=== PATIENT | female | born 1990 | race Caucasian/White ===

== ENCOUNTER 2022-01-17 08:00 | Outpatient (RCR) | payer OTHER, SELFPAY ==
--- NOTE | 2022-01-17 09:00 | BH.SGPN.GN ---
Behaviors/Verbalizations/Mental Status: []Eye contact is good. Motor activity is appropriate. Appearance is casual. Speech is Appropriate. Mood is depressed and anxious. Affect is congruent. Thoughts are linear and logical. No evidence of psychosis. Reviewed daily check in sheet and indicated a 1/5, with 5 being severe, for suicidal ideation and a 0/5 for suicidal intent. Client completed C-SSRS this morning and indicated she could keep self safe. Client Response/Progress/Benefit: []Client respond well to session as evidenced by listening attentively to others and sharing thoughts and feelings. Client reported she is seeking treatment because she has been struggling with worsening depression and struggling with processing recent ADHD diagnosis. Client stated she has been having lots of worries that she doesn't know who she is anymore after the ADHD diagnosis. Client reported mental health has impacted ability to work and needed to take time off to get help. Client's first day in IOP. Seemed to benefit from support from peers. Client to continue IOP to increase healthy coping, improve daily functioning and prevent decompensation. Narrative Note: []
--- NOTE | 2022-01-17 10:05 | BH.SGPN.GN ---
Behaviors/Verbalizations/Mental Status: []Pt alert and oriented, neatly dressed and groomed. Eye contact good. Motor activity appropriate. Speech within normal limits. Affect constricted, mood anxious. Thoughts linear, logical, no signs of hallucinations or delusions. Client Response/Progress/Benefit: []Pt attentive during psychoeducation and participated in group activity. Participated in interactive group discussion on internal and external barriers to mental health progress. Group identified examples of internal barriers as; negative thoughts, anxiety, cognitive distortions, and past experiences. Pt kayla a picture of their current reality which pt described as I have an inner self with negative thinking and not letting people see what's really going on, and an outer self that others see that looks happy. Pt also kayla their desired reality which pt described as having some cracks in my inner self, but letting others in and not letting others' comments determine my worth. Benefited from increased awareness of current barriers to progress as well as current/desired realities. First day of IOP tx. Pt will continue IOP tx to prevent decompensation, gain healthy coping skills, and improve daily functioning. Narrative Note: []
--- NOTE | 2022-01-17 11:10 | BH.SGPN.GN ---
Behaviors/Verbalizations/Mental Status: [] Eye contact is good. Motor activity is appropriate. Appearance is casual. Speech is Appropriate. Mood is anxious. Affect is congruent. Thoughts are linear and logical. No evidence of psychosis. Client Response/Progress/Benefit: [] Pt was an active participant in group discussions. Attentive during psychoeducation. Engaged in experiential group activity. Able to identify barriers to desired reality which include: self-doubt, give up easily, and unrealistic expectations. Participated as group brainstormed ideas on how to cope with internal barriers that can keep individuals stuck. Benefited from group by identifying obstacles and solutions to desired reality.? Will continue in IOP to stabilize anxiety, prevent decompensation, and improve functioning to return to work. Narrative Note: []
--- NOTE | 2022-01-18 10:15 | BH.SGPN.GN ---
Behaviors/Verbalizations/Mental Status: [] Client alert and oriented, casually dressed and groomed. Eye contact good. Motor activity appropriate. Speech within normal limits. Affect congruent, mood euthymic. Thoughts linear, logical, no signs of hallucinations or delusions. Client Response/Progress/Benefit: [] Client responded well to session AEB sharing throughout group and listening attentively to others. Client provided examples of what weakens our safety net of supports being over involved and not putting boundaries on them. Group provided examples of benefits of having social support, including: validation, increased confidence, and better mental health. Client participated in experiential activity illustrating the importance of having multiple social supports. Client provided supportive feedback and problem solving throughout group activity. Client participated in group processing of the activity, stating having more social support makes ?things easier?. Client appeared to benefit from increased knowledge of the benefits of social support and greater self-awareness. Client will continue IOP treatment to continue increasing application of healthy coping skills and decrease isolation. Narrative Note: []
--- NOTE | 2022-01-18 11:15 | BH.SGPN.GN ---
Behaviors/Verbalizations/Mental Status: [] Client alert and oriented, casually dressed and groomed. Eye contact good. Motor activity appropriate. Speech within normal limits. Affect congruent, mood euthymic. Thoughts linear, logical, no signs of hallucinations or delusions. Client Response/Progress/Benefit: [] Client was an active participant throughout AEB contributing to discussion, providing personal examples, and taking notes. Client processed emotions felt in the activity and how they coped in the moment. Client provided input during discussion on the types of support our supports can provide. Client able to identify current support system and barriers that get in the way of using supports by drawing out their own support net. Client reported after identifying what type of supports she receives, she gained awareness that she could benefit from more social supports. Client identified steps to achieve this by accepting invitations, make more friends, and get out more. Client shared increasing social supports will help her get out of her head more. Client seemed to benefit from identifying the type of support client needs to work on improving. Client recommended to continue IOP tx to prevent decompensation, reduce isolation, and increase overall functioning. Narrative Note: []
--- NOTE | 2022-01-18 11:29 | BH.MDN ---
Multi-Disciplinary Note - Note 30-min Individual Time Started:: 09:35 Date: 01/18/22 Purpose of session/treatment goals addressed:: To gather information on pt's current stressors, symptoms, triggers, and tx goals. Another goal was to build rapport and provide emotional support. Eye Contact:: Fair Motor Activity:: Restless Speech:: Rambling, Rapid Mood:: Anxious, Dysthymic Affect:: Congruent, Other - tearful throughout session Thoughts:: Racing, Other - jumping from topic to topic. Staff Interventions:: rapport building, strengths perspective, treatment planning, goal setting Client Response:: Pt responded well to session, open to meeting with therapist. Pt shared a little about her history with mental health treatment. Pt is currently seeing Dr. Singh for medication management at [place] [id number] and Kamilah for counseling at [place] [address]. Pt shared she has been in and out of counseling for years and has found it helpful in the past. Pt has a history of alcohol use disorder, OCD, and was recently diagnosed with ADHD. Pt shared being diagnosed helped give pt some insight, but it also triggered anxiety about her identify and led to over-researching. Pt was tearful and shared the biggest thing she wants to work on is managing her expectations for herself. Pt stated she has had high expectations since she was a child, and pt shared some of these were placed on pt by her family. Pt acknowledges that her depressive symptoms derive from her unrealistic expectations of herself and anxiety. Pt also wants to work on finding her self-confidence, being able to set boundaries with herself, and improve her functioning. Risks/Concerns:: Pt admits to having thoughts of wishing she did not exist, but pt denies any active SI, plan, or intent. Pt denies any HI. Progress Toward Goals/Plan:: Pt's second day of IOP tx and reports enjoying group so far. Pt endorses severe anxiety, depressive symptoms, racing thoughts, and wishes of . Pt was tearful throughout session and sharing how she feels like I haven't met any expectations for my life so far. Pt reports she was diagnosed with ADHD in August which has been both helpful and more stressful to learn. Pt is established with outpatient counseling and psychiatry. Pt will continue IOP tx to prevent decompensation, improve daily functioning, and improve self-confidence. Time Stopped:: 10:05
--- NOTE | 2022-01-18 11:35 | BH.PSA_ITS ---
Source of Information - Presenting Problems/Circumstances Problems, Referral Source, Mental Status, Client: Pt is a 31 year-old female with a history of MDD, ADHD, OCD, and alcohol use disorder in remission. Pt has no previous psych admissions and was referred to [facility] by her outpatient psychiatrist due to decompensation impacting functioning. At admission, pt endorsed hopelessness, worthlessness, isolative behaviors, anhedonia, loss of appetite, low energy, and lack of motivation. Pt also had survival ambivalence, but denied any SI. Pt reported crying spells throughout the day and not knowing who she is due to recent ADHD diagnosis. Pt's functioning is severely impacted by symptoms, pt is off work because of mental health and struggling to complete ADLs. Pt's symptoms are also impacting her social and familial functioning. Psychiatric Presentation - Psych Issues & Need for Admission Psychiatric Issues:: Major depressive disorder, recurrent, moderate F 33.1; Obsessive-compulsive disorder; Generalized anxiety disorder; ADHD; Alcohol use disorder in remission since July 2021 Past Psychiatric History - Treatment Hx Treatment History: No psychiatric admissions ever. No suicide attempts. She first took psych medications at age 12. She first had counseling at age 8 for being bullied and it was somewhat helpful. She had exposure therapy in the past for OCD which was quite helpful. She has a psychiatrist and therapist at [place] [id number]. She has tried in the past Adderall, Paxil, Zoloft and Wellbutrin. First hospitalization:: n/a Most recent hospitalization:: n/a Medication Trials:: Yes ECT Therapy:: No Age of first mental health symptoms: See treatment history Describe (age, circumstance, etc) any past hospitalizations: Pt denies any hospitalizations for mental health reasons, but pt was admitted for her alcohol use in the past. Pt has been to rehab for alcohol twice in 2015 and one was inpatient and one was short-term for less than a week. Current providers for mental health treatment (counselor, psychiatrist, upper caser, etc.): Pt sees Dr. Singh for psychiatry and Kamilah Cm for counseling at [place] [address]. Development & Family of Origin - Childhood Significant Childhood Events: She was quite as a child and her school life was a struggle as she had difficulty making friends. Pt also reports due to her mother's unmanaged anxiety, there was tension at times at home. - Family Who currently lives in your home?: Pt currently lives with her parents due to her mental health and financial reasons. Describe family composition:: Pt was born and raised in [place]. Pt describes her childhood as happy and loving but sometimes tense because her m other had untreated anxiety. Pt is closer now with her mother. Pt has a an adopted sister 15 years older than her and a biological brother one year younger than her and she is sort of close to her siblings. Pt has never been and has no children. Pt is close with her nieces and nephews. - Family History Family Hx of Psychiatric or AOD Problems: Both parents have anxiety per pt's report. Father also has depression. No completed suicides in the family. No one uses alcohol on either side of the family but there is no substance disorder known. Ethnicity - Culture Do you identify yourself with any particular cultural, ethnic background, or community?: No - Sexuality Sexual Orientation: Heterosexual Spirituality - Scientologist Do you currently identify with any organized latter-day?: None Mental Status - Memory Recent Memory: Good Remote Memory: Good - Speech Speech: Rapid, Circumstantial - Thought Process Thought Process: Obsessions, Ruminations Insight: Good Judgment: Good Behavior: Anxious - Orientation Orientation: Time, Person, Place, Situation - Appearance Appearance: Appropriate - Mood Mood: Anxious, Dysphoric/tearful - Affect Affect: Alert - tearful throughout session Suicide Assessment - Suicidal Ideation Have you ever felt like hurting yourself?: Yes Were you using ETOH/drugs at the time?: Yes Suicidal Intentional Rating Scale (SIRS): Current suicidal thoughts/No plan/Contracts for safety - pt does not have suicidal ideations, but pt does a dmit to having thoughts of wishing she was never born. Physician Notification: If Active suicidal thoughts/Will not contract for safety is checked, contact physician and document in the Physician Notification section below. Violent Behavior/Abuse History - Homicidal Ideation Do you have any homicidal thoughts? If so, explain:: No Is there a known potential victim? If yes, who:: No - Abuse Have you ever been abused?: No - Life Events Are there any other significant life events?: Financial loss, Hardships Describe significant life events: currently off work and reports work was one of the biggest stressors, financial stress, living with parents, recent diagnosis of ADHD, and being unsure with what pt wants to do. - Safety Do you ever feel threatened in your home? If yes, describe:: No Adult Social History - Age 16 to Present Describe your current support system:: Pt reports right now her mother is her biggest support, but they also fight. Pt has one close friend and some friends from work, but overall she reports a limited support system. Substance Use - Substance Substance Use Type: Alcohol, Caffeine - Specific Drugs What specific drugs have you used?: History of alcohol use disorder but has been sober since December 2020 but had 1 drink on a work trip in July 2021 but has not had any alcohol since. Pt has been to rehab for alcohol twice in 2014. One was inpatient and one was short-term for less than a week. Pt first used alcohol at age 15 and her maximum use was about half a bottle of vodka a day for 7 months. Pt reports her relationships were ruined by her alcohol use. Leisure/Social Activities - Interests What do you enjoy or might be interested in learning about?: Pt enjoys art, literature, sports, and spending time with family. 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 Service - Service Have you ever been in the ?: No Legal History - Records Have you had any past legal charges?: No Do you have any current legal charges?: No Have you ever been incarcerated? If yes, describe:: No - Court Orders Have you had any past court orders for psychiatric treatment?: No Do you have a present court order for psychiatric treatment?: No Problem Checklist - Current Problem Areas Problem List: Nutritional/Eating pattern changes, Depressed mood/sad, Anxiety, Anger/aggression, Inattention, Impulsivity, Substance use - history of rehab with one inpatient admission. Sober now since July., Pertinent health issues - gastric sleeve procedure in 2008. She was 290 pounds at the time of this gastric sleeve and her lowest weight achieved was 145 pounds but she was about 225 pounds now. She has a history of stomach ulcer in 2012 and pancreatitis due to alcohol use in 2014., Additional psychosocial stressors - on leave from work, limited supports, and recent diagnosis of ADHD. Discharge Planning Needs - Anticipated Follow-Up [facility] (Name/Phone Number):: [place] [phone] Private Therapist/Psychiatrist:: Dr. Singh (psychiatrist) Kamilah Cm (therapist) [employer] Worker's Assessment - Client's Needs What are the client's strengths?: Pt is motivated, intelligent, and receptive to treatment. Pt is connected with outpatient providers at [place] [address] and pt's family is supportive per her report. Diagnoses - Diagnoses Diagnosis #1:: Major depressive disorder, recurrent, moderate F 33.1 Diagnosis #2:: Obsessive-compulsive disorder Diagnosis #3:: Alcohol use disorder in remission since July 2021 Diagnosis #4:: ADHD Interpretive Summary - Interpretive Summary Interpretive Summary: Pt is a 31-year-old single, female with a longstanding history of anxiety and depression since about 8 years of age and a history of OCD and alcohol use disorder. Pt was referred by her outpatient psychiatrist for worsening of symptoms and inability to function well. Pt currently lives with her parents and her cat and their dog. Pt has been living back with her parents for 7 months now and has been living with them off and on for 3 or 4 years. Pt is close with her parents, but pt also argues often with her mother. 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 Her job has been an increasing stressor lately and pt is considering leaving this job. Pt feels pt has been depressed for several years now but states that socialization makes her depression and anxiety improve. Alcohol makes them much worse. Pt recently was diagnosed with ADHD in August 2021 and this has led to a lot of self questioning and reevaluation of her life and how pt has interpreted it up to now. Pt is anxious and self-conscious of this. Pt has depressed mood with episodes of crying. Pt admits to worthlessness and hopelessness. Pt still finds khoi in the things pt does every day but has trouble motivating herself. Pt ruminates negatively and is very hard on herself with many negative core beliefs. Pt will lash out if pt?s negative core beliefs are activated. Appetite has decreased somewhat possibly due to stimulant use which started 4 months ago. Pt lost about 60 pounds in the last 6 months without really trying. Pt has a history of a gastric sleeve gastric sleeve surgery. Pt is sleeping about 7 hours a night but sometimes wakes up earlier and is unable to fall back asleep. Pt has low energy but concentration is okay. Pt feels guilty and is a worrier by nature. Pt was diagnosed with OCD at age 13 with issues around cleanliness mostly now. Pt has had exposure therapy at [facility] in the past with great success. Pt does do handwashing now around cleanliness but no other real sympt oms of OCD now in the last an hour or less. Pt does have fleeting thoughts that she wished she was never been born but pt denies outright passive thoughts that pt would not care if pt . Pt denies suicidal ideation, homicidal ideation, ursula, eating disorder, trauma, PTSD and denies history of self-harm. Pt is a recovering alcoholic and reports alcohol use ruined her relationships. Pt has fa susan history of anxiety, depression, and OCD. Pt has a lot of insight and reports really feeling ready to make a change in her life to get better. Treatment Plan Recommendations - Recommendations Guidelines: Special needs identified to be included in the development of an individualized treatment plan regarding past psychiatric history and treatment, developmental events, family relationships/events/culture, past and/or current educational, occupational, social, and residential experience, and legal status. Recommendations:: Pt will start the IOP as the structure, support, education and group therapy will hopefully prevent worsening of pt's symptoms which might require hospitalization Pt felt safe during the interview and if it anytime she does not feel safe she will let us know or go to the emergency room. The risks, options, possible complications and side effects of the medication were discu ssed with pt and she understands accepts these. Pt does not want any medication changes. Pt will continue to follow-up with her outpatient psychiatric and medical providers.
--- NOTE | 2022-01-18 11:35 | BH.MTP_ITS ---
Master Treatment Plan - Patient Information Program Physician:: Dr. Marci Melchor Primary Therapist:: Lili NUÑEZ - Psychiatric Diagnoses Psychiatric Diagnoses:: Major depressive disorder, recurrent, moderate F 33.1; Obsessive-compulsive disorder; Generalized anxiety disorder; ADHD; Alcohol use disorder in remission since July 2021 Diagnosis Code(s):: F 33.1; F41.1 - Estimated LOS Estimated LOS (in weeks):: 6 Problem/Goal #1 - Problem/Goal #1 Stated Goal:: Pt will reduce depressive symptoms, lack of motivation, and passive thoughts of due to major depressive disorder. Description of Barriers: Pt reports getting the ADHD diagnosis was both helpful and triggered feelings of loss of self and identity. Pt admits to having high expectations of herself and pt struggles with all or nothing thinking. Pt has history of alcohol use disorder which is in remission. Functional Impact: Pt is a 31 year-old female with a history of MDD, ADHD, OCD, and alcohol use disorder in remission. Pt has no previous psych admissions and was referred to [facility] by her outpatient psychiatrist due to decompensation impacting functioning. At admission, pt endorsed hopelessness, worthlessness, isolative behaviors, anhedonia, loss of appetite, low energy, and lack of motivation. Pt also had survival ambivalence, but denied any SI. Pt reported crying spells throughout the day and not knowing who she is due to recent ADHD diagnosis. Pt's functioning is severely impacted by symptoms, pt is off work because of mental health and struggling to complete ADLs. Pt's symptoms are also impacting her social and familial functioning. Goal Relevant Strengths/Supports: Pt is motivated, intelligent, and receptive to treatment. Pt is connected with outpatient providers at [place] [address] and pt's family is supportive per her report. - Objectives Objective #1 Stated Objective: Pt will learn and utilize 2-3 healthy coping strategies to better manage depressive symptoms and reduce DSM-5 symptoms for depression. Interventions: Through group and individual sessions, therapist will help pt identify triggers and warning signs of depression and emotional dysregulation including emotional, physical, and behavioral changes. Therapist will teach pt various coping skills to manage her symptoms. Therapist will use cognitive restructuring techniques and help pt gain awareness of negative thoughts that reinforce depressive cycles. Therapist will help pt incorporate mindfulness and emotional regulation skills when dealing with difficult situations. Discharge Criteria: Pt will have met this goal when she can report learning and using at least 2 coping skills to manage depressive symptoms and her DSM-5 scores for depression have decreased. Target Date: 02/28/22 Review Date: 02/07/22 Status: open Objective #2 Stated Objective: Pt will identify at least 2-3 negative self-talk messages used to reinforce guilt, worthlessness, and isolation and replace thoughts with balanced, realistic messages. Interventions: Therapist will help pt identify distorted, negative beliefs about self and replace with more realistic, affirmative messages. Therapist will use CBT and DBT to help pt increase insight to the connection between thoughts, emotions, and behaviors. Therapist will encourage pt to practice thought challenging. Discharge Criteria: Pt will have achieved this goal when can verbalize at least 2 cognitive distortions and effectively replace those thoughts with affirmative messages. Target Date: 02/28/22 Review Date: 02/07/22 Status: open Problem/Goal #2 - Problem/Goal #2 Stated Goal:: Pt will reduce overall frequency, intensity, and duration of anxiety and racing thoughts so that daily functioning is less impaired Description of Barriers: Pt reports getting the ADHD diagnosis was both helpful and triggered feelings of loss of self and identity. Pt admits to having high expectations of herself and pt struggles with all or nothing thinking. Pt has history of alcohol use disorder which is in remission. Functional Impact: Pt is a 31 year-old female with a history of MDD, ADHD, OCD, and alcohol use disorder in remission. Pt has no previous psych admissions and was referred to [facility] by her outpatient psychiatrist due to decompensation impacting functioning. At admission, pt endorsed hopelessness, worthlessness, isolative behaviors, anhedonia, loss of appetite, low energy, and lack of motivation. Pt also had survival ambivalence, but denied any SI. Pt reported crying spells throughout the day and not knowing who she is due to recent ADHD diagnosis. Pt's functioning is severely impacted by symptoms, pt is off work because of mental health and struggling to complete ADLs. Pt's symptoms are also impacting her social and familial functioning. Goal Relevant Strengths/Supports: Pt is motivated, intelligent, and receptive to treatment. Pt is connected with outpatient providers at [place] [address] and pt's family is supportive per her report. - Objectives Objective #1 Stated Objective: Pt will identify 2-3 anxiety triggers and 2 coping skills to use when feeling anxious to manage anxiety as shown by reducing DSM-5 scores for anxiety. Interventions: Through group and individual sessions, pt will gain awareness of anxiety triggers and learn numerous techniques to manage anxiety symptoms. The rapist will teach mindfulness and other calming techniques to manage symptoms and increase distress tolerance skills. Discharge Criteria: Pt will have met this goal when pt can identify at least 2 triggers and 2 ways to cope with anxiety and show a reduction of DSM-5 scores for anxiety. Target Date: 02/28/22 Review Date: 02/07/22 Status: Open Objective #2 Stated Objective: Pt will identify 2-3 intrusive/ruminating thoughts and learn 2-3 strategies to overcome, replace, or reduce the value of those thoughts. Interventions: Therapist will help pt increase awareness of cognitive distortions and intrusive thinking. Therapist will encourage pt to focus on stressors in her control and teach pt distress tolerance techniques. Therapist will utilize distractions, mindfulness, and CBT-based strategies to help pt learn how to more effectively manage and cope with her intrusive and racing thoughts. Discharge Criteria: pt will have met this goal when can report least 2 ways to cope with racing and intrusive thoughts that exacerbate anxiety. Target Date: 02/28/22 Review Date: 02/07/22 Status: open
--- NOTE | 2022-01-19 09:00 | BH.SGPN.GN ---
Behaviors/Verbalizations/Mental Status: []Eye contact is good. Motor activity is restless. Appearance is casual. Speech is Appropriate. Mood is anxious. Affect is congruent. Thoughts are linear and logical. No evidence of psychosis. Reviewed daily check in sheet and no reports of suicidal ideations or intent. Client Response/Progress/Benefit: [] Pt responded well to session, engaged and actively listening to peers. Pt reports feeling overwhelmed today as pt recently started IOP and group normalized how this can be emotionally exhausting. Pt shared she was proud of herself for coming up with a solution to a problem recently instead of panicking. Pt also was able to be productive after leaving IOP which felt good. Pt's stressors right now are living with her parents, figuring out how to manage her mental health, and unrealistic expectations of herself. Pt appeared to benefit from reflecting on personal resilience. Pt will continue IOP tx to prevent decompensation, improve daily functioning, and increase self-compassion. Narrative Note: []
--- NOTE | 2022-01-19 10:05 | BH.SGPN.GN ---
Behaviors/Verbalizations/Mental Status: [] Eye contact is good. Motor activity is appropriate. Appearance is disheveled. Speech is Appropriate. Mood is anxious. Affect is congruent. Thoughts are linear and logical. No evidence of psychosis. Client Response/Progress/Benefit: [] Pt was an active participant in group discussion. Attentive during psychoeducation on cognitive distortions, the CBT triangle, and automatic thoughts. This group was very information heavy as therapist introduced 10 common cognitive distortions which included; All or Nothing Thinking, Overgeneralization, Mental Filter, Disqualifying the Positives, Jumping to Conclusions, Emotional Reasoning, Labeling, Catastrophizing, Shoulds/Musts, and Personalization. Pt along with peers did contribute examples of each distortion. Benefited from increased knowledge and insight into cognitive distortions and how they can impact mental health. Will continue in IOP to prevent decompensation, increase healthy coping skills, decrease intrusive thoughts, and improve functioning to return to work. Narrative Note: []
--- NOTE | 2022-01-19 11:30 | BH.NA ---
Physical Data - Vital Signs Pulse Rate: 74 Blood Pressure: 156/107 - Height/Weight Height: 1.68 m Weight:: 102.058 kg Weight in Pounds: 225.0 lbs Current Medication Compliance - Medication Compliance Do you take your medication as prescribed?: Yes Nutritional History - Appetite Nutritional Instructions:: If client shows signs of a swallowing problem, weight change of 10 pounds or more in the last month, or is on a diabetic diet, the physician will review and request a dietitian consult, as appropriate. All unintentional weight loss will be referred to the physician for decision on need for dietitian consult. Describe your appetite:: Fair Additional nutritional information:: Client states she has had a 63lb weight loss since May 2021 unintentionally. Client states she has been started on ADHD medication in that time, and has noticed a decrease in her eating at times. Functional Assessment - Sleep Pattern Describe any problems with sleeping: Client states she sleeps 7-8 hours per day. - Activities Motor Activity:: Functional Sensory/Communication Assess - Communication Problems Do you have difficulty understanding what people are saying?: No Medical Problems/History - Pain Assessment Do you have acute or chronic pain?: No - Additional History Additional comments:: 2015- pancreatitis d/t alcohol use, in ICU for several weeks, intubated, altered kidney and lung function. Client states function has returned to normal. Surgical History - Surgical History Have you had any surgeries? If so, list type and date:: Yes - gastric sleeve, right ACL repair x2, wisdom teeth removed Substance Abuse - Substance Abuse Please describe substance abuse in the last 30 days:: Client reports from [id number] heavy alcohol use, stating about 8-9 months of that time with very heavy alcohol use. Client was hospitalized in 2014 for pancreatitis due to alcohol use. Client states she has been sober for almost 1 year besides one occasion where she had a few drinks in July 2021. Client denies tobacco or drug use. Client drinks 12-16oz of caffeinated drink per day. Mental Status Summary - Mental Status Significant Findings/Observations on Appearance and Mood:: Client is alert and oriented x 4. Client is casually groomed with good hygiene. Client is cooperative with assessment. Client makes good eye contact. Clients voice has normal rate and volume. Client has appropriate affect and makes logical associations. Client denies delusions/hallucinations. Client denies SI. Suicide Assessment - Suicidal Ideation Are you currently or have you been suicidal in the past?: No Suicidal Intentional Rating Scale (SIRS): No suicidal thoughts (past or present) Physician Notification: If Active suicidal thoughts/Will not contract for safety is checked, contact physician and document in the Physician Notification section below. Assault History/Potential Past Psychiatric History - MH Treatment Hx Past Psychiatric Medications:: Zoloft, Paxil, Wellbutrin, Xanax Age of first mental health symptoms: Client states she was first on medication for mental health around age 11 but states she was very sporadic about taking medication. Client states she was diagnosed with ADHD around July 2021. Describe (age, circumstance, etc) any past hospitalizations: None. Current providers for mental health treatment (counselor, psychiatrist, registered nurse hh case manager, etc.): therapy and psychiatry at [place] [id number] Fall Risk Assessment - Age Age: Less than 60 - Mental Status Mental Status: Willing & able to ask for assistance when needed - Physical Status Physical Status: No problems - Impairments Impairments: None - Elimination Elimination: Continent AND independent - Gait or Balance Gait or Balance: Walks independently - Hx of Falls History of falls in the past 6 months: No known history - Medications/Substances Psychotropics:: Antidepressants, Stimulants Others:: Diuretics Medications/substances used within the past 24 hours or ordered to administer: 3 or more of the medications/substances listed above - Total Score Total Points:: 2 RN Summary of Impressions - Impressions Recommendations: Include psychiatric and medical issues, treatment planning recommendations, and discharge planning needs. Impressions: Psychiatric Issues: 1. Major depressive disorder, recurrent, moderate. 2.Obsessive-compulsive disordr. 3. Generalized anxiety disorder. 4. ADHD. 5. Alcohol use disorder in remission since July 2021 Impression: General Medical Conditions: Discussed client's BP of 156/107. Client states her BP varies a lot, stating while on Spironolactone, if she does not drink enough fluids her BP seems to be high. Client has discussed her BP variation with PCP and is following up with PCP next month. - Level of Care How do the client's current symptoms and functional deficits support need for this level of care?: Client was referred to [facility] by outpatient psychiatrist for mental health impacting function. Client states some changes at work and being diagnosed with ADHD have had an impact on her mental health, but states she also felt symptoms of depression prior to changes. She states she feels stress at work have caused her symptoms to worsen. Client reports decreased energy, crying spells, anhedonia, and ruminations. Client denies SI. IOP will promote gains and prevent further decompensation while providing social support and skills training.
[2022-01-19 12:06] VITALS: BP 156/107; PULSE 74
--- NOTE | 2022-01-19 13:10 | BH.PSY.EVA_ITS ---
Psychiatric Evaluation Initial Evaluation Initial Evaluation: History of Present Illness: [] The patient is a 31-year-old single, never female with a longstanding history of anxiety and depression since about 8 years of age and a history of OCD and alcohol use disorder. She was referred by her outpatient psychiatrist for worsening of symptoms and inability to function well. She currently lives with her parents and her cat and their dog who she is very close to. She has been living back with her parents for 7 months now and has been living with them off and on for 3 or 4 years. 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 Her job has been an increasing stressor lately also. She feels she has been depressed for several years now but states that socialization makes her depression and anxiety improve. Alcohol makes them much worse. She recently was diagnosed with ADHD in August 2021 and this has led to a lot of self questioning and reevaluation of her life and how she has interpreted it up to now. She really feels ready to make a change in her life to get better. She has depressed mood with some episodes of crying. She admits to worthlessness and hopelessness. She still finds khoi in the things she does every day but has trouble motivating herself. She ruminates negatively and is very hard on herself. Appetite has decreased somewhat possibly due to stimulant use which started 4 months ago. She lost about 60 pounds in the last 6 months without really trying. She has a history of a gastric sleeve gastric sleeve surgery. She is sleeping about 7 hours a night but sometimes wakes up earlier and is unable to fall back asleep. She has low energy but concentration is okay. She feels guilty and is a worrier by nature. She was diagnosed with OCD at age 13 with issues around cleanliness mostly now. She has had exposure therapy at [facility] in the past with great success. She does do handwashing now around cleanliness but but no other real symptoms of OCD now in the last an hour or less. She does have fleeting thoughts that she wished that she had never been born but she denies outright passive thoughts that she would not care if she . She denies suicidal i deation, homicidal ideation, ursula, eating disorder, trauma, PTSD and denies history of self-harm. She does not have a boyfriend now. Current Psychiatric Medications: [] Effexor XR 225 mg p.o. daily (on this for 2 years); trazodone 50 to 100 mg p.o. nightly as needed sleep; Concerta unknown dose by mouth for ADHD since September 2021 and this dose was increased recently. Past Psychiatric History: [] No psychiatric admissions ever. No suicide attempts. She first took psych medications at age 12. She first had counseling at age 8 for being bullied and it was somewhat helpful. She had exposure therapy in the recent past for OCD which was quite helpful. She has a psychiatrist at [place] [id number]. She has tried in the past Adderall, Paxil, Zoloft and Wellbutrin. Substance Use History: [] Non-smoker and no vaping. No drug use. History of alcohol use disorder but has been sober since December 2020 but had 1 drink on a work trip in July 2021 but has not had any alcohol since. She has been to rehab for alcohol twice in 2014 1 was inpatient and 1 was short-term for less than a week. She first used alcohol at age 15 and her maximum use was about half a bottle of vodka a day for 7 months. Allergies: [] No known allergies Medications: [] Psych meds plus pantoprazole, spironolactone for PCOS, Mirena IUD Past Medical History: [] Obesity with a gastric sleeve procedure in 2008. She was 290 pounds at the time of this gastric sleeve and her lowest weight achieved was 145 pounds but she was about 225 pounds now. She has a history of stomach ulcer in 2012 and pancreatitis due to alcohol use in 2014. She had wisdom teeth in 2004 and ACL replacement surgery in 2020 and 2 times earlier. She has had PCOS and GERD in the past and a recent ADHD diagnosis. She had a left ear infection 2 weeks ago and just finished the antibiotics for it. She is a 0 para 0 female and is on a Mirena IUD so only has menstrual spotting only but no menses. Family Psychiatric History: [] Both parents are living and both have anxiety. Father also has depression. No completed suicides in the family. No one uses alcohol on either side of the family but there is no substance disorder known. Personal/Social History: [] Patient was born and raised in [facility]. She describes her childhood as happy and loving but sometimes tense because her mother had untreated anxiety. She has a an adopted sister 15 years older than her and a biological brother 1 year younger than her and she is sort of close to her siblings. She was quite as a child and her school life was a struggle as she had difficulty making friends. She is currently single and lives recently in a relationship of 3 years but her alcohol use room this. She has denies any physical, verbal or sexual abuse. She was engaged previously but ended the relationship and has had a few serious relationships in the past. No children. Highest level of education is a bachelor's degree in [place]. Legal History: [] Has [place] driver's license. No DUIs. No fdc or halfway. Review of Systems: [] Occasional diaphoresis. Some nausea and vomiting in the last 6 to 9 months due to anxiety. Some increase in urination due to starting spironolactone 3 weeks ago. Vital Signs: [] Vital signs and exam are reviewed in the nurses notes and in the records and updated and the patient is deemed medically able to participate in the IOP program. Mental Status Examination: [] The patient is a 31-year-old obese male who appears normal for stated age and is casually dressed and groomed with good hygiene. She is alert and oriented to person place and time and is ambulatory with a normal gait. She has no psychomotor agitation or retardation. She is cooperative, pleasant and talkative during the evaluation. Eye contact is good and speech is normal rate and rhythm and fluent with no pressure. Mood is depressed and affect is full and normal but she became almost tearful during some part to the evaluation. Thought process is goal-directed and organized. Thought content: There is evidence of survival ambivalence involving wishing she had never been born. There is no evidence of passive thoughts of , suicidal ideation, plan for suicide, homicidal ideation, symptoms of ursula, hallucinations or delusions. She is somewhat preoccupied with how the diagnosis of ADHD has impacted her life. Reality testing is intact. Judgment is intact. Impulsivity is moderate. Insight is good. Diagnoses: [] 1. Major depressive disorder, recurrent, moderate 2.Obsessive-compulsive disordr 3. Generalized anxiety disorder 4. ADHD 5. Alcohol use disorder in remission since July 2021 6. PCOS 7. Obesity: Status post gastric sleeve in 2008 Plan: [] The patient will start the IOP program at [facility] as the structure, support, education and group therapy will hopefully prevent worsening of the patient's symptoms which might require hospitalization. The patient felt safe during the interview and if it anytime she does not feel safe she will let us know or go to the emergency room. The risks, options, possible complications and side effects of the medication were discussed with the patient and she understands accepts these. The patient refuses any medication changes and is waiting until she gets her ADHD under good control before changing any medications for depression or anxiety. The patient will continue to follow-up with her outpatient psychiatric and medical providers and I will see the patient in follow-up in 2 weeks.
--- NOTE | 2022-01-19 13:23 | BH.DR.ITP ---
Initial Treatment Plan Patient Information Visit Information: ADMISSION DATE: EXPECTED LOS: 4-6 weeks Problems/Symptoms Problem #1:: Depression Symptom:: Sadness, crying, survival ambivalence, low motivation, worthlessness, hopelessness, biological disruption of sleep, low energy, guilt Problem #2:: Anxiety Symptom:: Worry, rumination, obsession and handwashing rituals
--- NOTE | 2022-01-24 09:05 | BH.SGPN.GN ---
Behaviors/Verbalizations/Mental Status: [] Eye contact is good. Motor activity is appropriate. Appearance is disheveled. Speech is Appropriate. Mood is depressed. Affect is flat. Thoughts are linear and logical. No evidence of psychosis. Reviewed daily check in sheet and no reports of suicidal ideations or intent. Client Response/Progress/Benefit: [] Pt was an active participant in group discussion. Attentive. Provided appropriate feedback. Daily symptom tracker notes 3/5 for anxiety, depression, and irritability. Mental health wins include setting boundaries with support, organizing her room, and completing tasks. Elaborated more about how these are mental health wins. Despite her accomplishments she reports intrusive thoughts that she should do more. Able to identify cognitive distortions and challenge thoughts however limited relief. Group shared feedback on accepting thoughts and emotions which was beneficial. Progress noted per pt report. Will continue in IOP to decrease intrusive thoughts, prevent decompensation, and improve functioning to return to work. Narrative Note: []
--- NOTE | 2022-01-24 10:05 | BH.SGPN.GN ---
Behaviors/Verbalizations/Mental Status: []Pt alert and oriented, casually dressed and groomed. Eye contact good. Motor activity restless. Speech within normal limits. Affect congruent, mood anxious and depressed. Thoughts linear, logical, no signs of hallucinations or delusions. Client Response/Progress/Benefit: []Pt participated at times during the group discussion. Attentive during psychoeducation. Participated in experiential activity. Pt contributed during interactive discussion on the consequences of unhealthy expression of emotions.? Attentive while peers identified several consequences which included; pushing people away, ?exploding,? and losing relationships. Attentive during interactive discussion on common potholes to effectively communicating which included; shutting down, assuming, fear of judgement, and not knowing what to say. Pt reported personally struggling with trusting others and fear impacting her ability to communicate. ?Pt was able to relate and make connections between the experiential activity and the overall topic. Benefited from increased awareness of how stress and emotions can impact one's ability to communicate. Will continue in IOP to prevent decompensation, improve overall functioning, and reduce distorted thought patterns. Narrative Note: []
--- NOTE | 2022-01-24 11:05 | BH.SGPN.GN ---
Behaviors/Verbalizations/Mental Status: []Pt alert and oriented, casually dressed and groomed. Eye contact good. Motor activity appropriate. Speech within normal limits. Affect congruent, mood anxious and depressed. Thoughts linear, logical, no signs of hallucinations or delusions. Client Response/Progress/Benefit: []Pt engaged in session AEB pt listening attentively to peers and providing input. Attentive during psychoeducation on 4 zones of regulation. Pt able to identify feelings and behaviors for each zone.? Pt identified coping skills one can use to support self in each zone. Pt stated belief that pt is in the blue zone today as pt feels ?gloomy,? tired, and slow-moving. Pt reports going home and organizing some of her things will help pt get out of the blue zone today. Benefited from increased education on zones of regulation or stages of alertness for emotions and healthy coping skills to use for each zone. Pt will continue IOP tx to prevent decompensation, improve self-compassion to combat distortions, and improve daily functioning. ? Narrative Note: []
--- NOTE | 2022-01-26 09:00 | BH.SGPN.GN ---
Behaviors/Verbalizations/Mental Status: [] Eye contact is good. Motor activity is appropriate. Appearance is casual. Speech is Appropriate. Mood is depressed. Affect is flat. Thoughts are linear and logical. No evidence of psychosis. Client Response/Progress/Benefit: [] Pt was an active participant in group discussion. Attentive. Provided appropriate feedback. Emotion for today is ?anxious?. Pt states, ?I feel like my stressors are more than my wins? Increased anxiety since last IOP session with no know trigger. Reports that it was a struggle to get to IOP this AM due to depression and anxiety. Ruminating on past events. Some hopelessness regarding her future. No progress noted since last session. Benefited from group support, encouragement, and feedback. Will continue in IOP to maintain safety, stabilize mood, increase healthy coping, and improve functioning to return to work. Narrative Note: []
--- NOTE | 2022-01-26 10:10 | BH.SGPN.GN ---
Behaviors/Verbalizations/Mental Status: []Pt alert and oriented, casually dressed and groomed. Eye contact good. Motor activity appropriate. Speech within normal limits. Affect congruent, mood anxious and depressed. Thoughts linear, logical, no signs of hallucinations or delusions. Client Response/Progress/Benefit: []Pt was an active?participant in group discussion. Group worked together to identify benefits of healthy relationships which include; improves mental health, encouragement, motivation, accountability, validation, connection, someone to share experiences with, and personal growth. Group identified factors that lead to unhealthy relationships which included; co-dependence, gaslighting, not addressing issues, name-calling, and doing only what others want.?Pt?s personal factors were?overthinking, not addressing things early on, and external factors.?Actively participated in group experiential activity and expressed ideas to group. Benefited from increased insight and awareness of benefits of healthy relationships and factors that contribute to unhealthy relationships. Will continue in IOP tx to prevent decompensation, reduce negative thinking and self-talk, and improve daily functioning.? Narrative Note: []
--- NOTE | 2022-01-26 14:58 | BH.MDN_ITS ---
Multi-Disciplinary Note - Note 60-min Individual Time Started:: 12:00 Date: 01/26/22 Purpose of session/treatment goals addressed:: To work on goal #1 of pt's tx plan. Another goal was to practice dialectical thinking and self-compassion. Eye Contact:: Good Motor Activity:: Restless Appearance:: Casual Speech:: Tangential, Rambling Mood:: Anxious, Dysthymic Affect:: Congruent - tearful Thoughts:: Racing, Circular, No evidence of hallucinations/delusions noted Staff Interventions:: thought challenging, strengths perspective, goal setting, taught coping skills, other - DBT skills and self-compassion Client Response:: Pt responded well to session, open to meeting with therapist. Pt was tearful throughout session and shared her outpatient psychiatrist took pt off her ADHD medication. Pt stated this will be helpful because when pt takes it, pt is able to focus better, but right now that focus has been on obsessing over her mental health symptoms. Pt shared about her current worries, stressors, and fears which included fear of taking advantage of her parents, worry that pt will not be able to keep up with her ADLs, and lack of self-worth. Pt receptive to learning about dialectical thinking and how this could help pt accept she deserves boundaries. Pt is currently struggling to set boundaries because pt feels like I can't set boundaries and accept favors from people. Discussed being able to set boundaries and accept favors from people. Pt also shared what triggered her loss of confidence and self-doubt. From what pt described, pt's work environment was unhealthy and pt often felt misunderstood and misinterp reted. Pt also reflected more on why pt has such all or nothing expectations for herself. Pt receptive to completing the mistaken beliefs questionnaire for homework. Risks/Concerns:: Pt denies any suicidal ideations, plan, or intent as of 01/26/22. Pt denies any HI. Pt is future oriented. Progress Toward Goals/Plan:: Pt is making progress towards tx goals AEB pt's consistent attendance, engagement in group, and self-report of utilizing coping skills outside of IOP. Pt's symptoms are ongoing and have not decreased much since admission. Pt continues to report severe ruminations, crying spells, negative self-talk, guilt, and a depressed mood. Pt stated her outpatient psychiatrist has taken pt off her ADHD medication while in IOP because I was getting obsessed with my symptoms. Pt plans to work on mistaken belief questionnaire and work on boundary setting with parents for homework. Pt will continue IOP tx to prevent decompensation, improve self-compassion, and improve daily functioning. Time Stopped:: 12:53
--- NOTE | 2022-01-27 09:00 | BH.SGPN.GN ---
Behaviors/Verbalizations/Mental Status: [] Client alert and oriented, casually dressed and groomed. Eye contact good. Motor activity appropriate. Speech within normal limits. Affect constricted, mood euthymic, Thoughts linear, logical, no signs of hallucinations or delusions. Reviewed client?s symptom tracker, no risk for suicidal ideation, plan, or intent as of 01/27/22 Client Response/Progress/Benefit: [] Client responded well to group by actively participating throughout group. Reported that she recently set a boundary with her mother which was something that is difficult fo her to do and views it as a win for herself. Client also said how she feels like lately she has been in a better mood. Client shared that a stressor she currently has is dealing with her self talk aiding in her feelings of lack of worth. Client seemed to benefit from feedback from group members and provided input to other group members throughout group. She will continue IOP tx to increase coping skills, increase positive self talk, and increase overall functioning. Narrative Note: []
--- NOTE | 2022-01-27 10:00 | BH.SGPN.GN ---
Behaviors/Verbalizations/Mental Status: [] Eye contact is good. Motor activity is appropriate. Appearance is casual. Speech is Appropriate. Mood is euthymic. Affect is congruent. Thoughts are linear and logical. No evidence of psychosis. Client Response/Progress/Benefit: [] Client was an active participant during interactive group discussions. Attentive during psychoeducation on the six types of boundaries (physical, emotional, intellectual, sexual, time, and material) AEB note-taking. Along with peers contributed to interactive discussion on defining what a boundary is in mental health. Client along with peers identified challenges to setting boundaries which included; fear of other's response, guilt, fear of rejection, fear of disappointing the other person, etc. Client along with peers identified the benefits to setting boundaries such as feeling empowered, decreased stress, and increased time for self-care. Client shared a time when her intellectual boundary was violated when discussing politics. Group discussed the mental health benefits to establishing boundaries at work, school, and home. Client benefited from increased awareness and insight on the importance/benefit to setting health boundaries. Will continue in IOP to increase self worth, increase coping skills and improve functioning. Narrative Note: []
--- NOTE | 2022-01-27 11:00 | BH.SGPN.GN ---
Behaviors/Verbalizations/Mental Status: [] Client alert and oriented, casually dressed and appropriately groomed. Eye contact good. Motor activity normal. Speech within normal limits. Affect congruent, mood anxious and euthymic. Thoughts linear and intact. no signs of delusions or hallucinations Client Response/Progress/Benefit: [] Client responded well to session AEB listening attentively to peers, providing input, as well as taking notes throughout. Client contributed on psychoeducation on different boundary setting styles. Reports connecting most with porous style of boundary setting, identifying that she is dependent on the opinions of those who she is close to and fears upsetting them. Participated in small group discussion brainstorming various strategies for improving healthy boundary setting. Seemed to benefit from increased awareness of how different boundary styles can impact mental health. Will continue IOP tx to increase consistent application of skills, increase positive self image, and prevent decompensation. Narrative Note: []
--- NOTE | 2022-01-31 09:05 | BH.SGPN.GN ---
Behaviors/Verbalizations/Mental Status: [] Eye contact is good. Motor activity is appropriate. Appearance is casual. Speech is Appropriate. Mood is anxious. Affect is congruent. Thoughts are linear and logical. No evidence of psychosis. Reviewed daily check in sheet and no reports of suicidal ideations or intent. Client Response/Progress/Benefit: [] Pt was an active participant in group discussion. Attentive. Provided appropriate feedback. Daily symptom tracker notes 09/07 for anxiety and 08/07 for depression. Mental health win this weekend was ?boundary setting?. She had a difficult conversation with support which was very challenging. Proud of herself for not avoiding this and insight on how this was beneficial to her mental health. She reports that she is ?taking more action? on her thoughts and issues. She was also proud of herself for ?teaching? her nephew some coping skills for anxiety. Progress noted per pt report. Benefited from group support, encouragement, and feedback. Plan is to continue in IOP to prevent decompensation, increase healthy coping, and improve functioning to return to work.? Narrative Note: []
--- NOTE | 2022-01-31 10:10 | BH.SGPN.GN ---
Behaviors/Verbalizations/Mental Status: []Pt alert and oriented, neatly dressed and groomed. Eye contact good. Motor activity appropriate. Speech within normal limits. Affect congruent, mood anxious. Thoughts linear, logical, no signs of hallucinations or delusions. Client Response/Progress/Benefit: []Pt was an active participant in group discussions and activity. Attentive during psychoeducation. Pt along with peers were able to identify several negatives on the picture given to the group. Pt and peers also identified positives in the picture and made the connect that finding positives is much more difficult. Interactive discussion on the definition of perspective, how perspective is formed, and why perspective is important in treatment. Pt along with peers also identified that perspective can either motivate and encourage treatment or be a barrier to receiving help. Pt shared she had to challenge her perspective coming to IOP because her automatic thought was nothing truly helped before, so this won't. Will continue in IOP to reduce negative self-talk, improve overall functioning, and increase emotional regulation skills. Narrative Note: []
--- NOTE | 2022-01-31 11:10 | BH.SGPN.GN ---
Behaviors/Verbalizations/Mental Status: []Pt alert and oriented, neatly dressed and groomed. Eye contact good. Motor activity appropriate. Speech within normal limits. Affect congruent, mood anxious. Thoughts linear, logical, no signs of hallucinations or delusions. Client Response/Progress/Benefit: []Pt was attentive and contributed in small and larger group discussion. Pt completed strengths exploration worksheet and identified personal strengths to include: kindness, adventurousness, fairness, empathy, and logic. Pt able to acknowledge how these strengths are helping her and can continue to help pt in her mental health journey. Pt shared that working to recognize these personal strengths more consistently will help improve pt?s mood and increase self-worth. Shared wanting to focus on fostering personal strengths by writing down her wins and allowing herself to celebrate the wins, no matter how small. Benefited from identifying personal strengths and strategies for enhancing use of identified strengths. Pt to continue IOP tx to reduce negative thought patterns, improve self-compassion, and increase emotional regulation skills. ? Narrative Note: []
--- NOTE | 2022-02-02 09:05 | BH.SGPN.GN ---
Behaviors/Verbalizations/Mental Status: []Pt alert and oriented, neatly dressed and groomed. Eye contact good. Motor activity appropriate. Speech within normal limits. Affect congruent, mood euthymic. Thoughts linear, logical, no signs of hallucinations or delusions. Reviewed pt?s symptom tracker, no risk for suicidal ideation, plan, or intent as of 02/02/22 Client Response/Progress/Benefit: [] Pt responded well to session, attentive and providing emotional support. Pt reports feeling optimistic this morning. Pt identified numerous positives this morning including reducing caffeine, seeing her self-talk starting to work to combat distortions, and her ability to sit with uncomfortable feelings recently. Pt's stressor today is that she has been feeling insecure about her ADHD diagnosis and symptoms. Pt receptive to emotional support from peers and therapist which pt appeared to benefit from. Pt will continue IOP tx to promote mood stability, reduce negative self-talk, and improve daily functioning. Narrative Note: []
--- NOTE | 2022-02-02 10:10 | BH.SGPN.GN ---
Behaviors/Verbalizations/Mental Status: [] Eye contact is good. Motor activity is appropriate. Appearance is disheveled. Speech is Appropriate. Mood is anxious. Affect is congruent. Thoughts are linear and logical. No evidence of psychosis. Client Response/Progress/Benefit: [] Pt was a active participant in group discussions. Attentive during psychoeducation. Along with peers pt participated in interactive discussions in which group defined self-care, discussed the benefits to self-care, and identified common myths surrounding self-care which included; self-care is selfish, self-care is self-indulgent, self-care is just personal hygiene, self-care should be fun, self-care is too time consuming, I don?t deserve it, self-care means I?m not being productive. Pt and peers broke into smaller group and worked together to bust the myths associated with self-care. Benefited from increased awareness of the self-care and its benefits. Will continue in IOP to maintain safety, prevent decompensation, increase healthy coping, and improve functioning. Narrative Note: []
--- NOTE | 2022-02-02 11:18 | PCM.BH.PN_ITS ---
Progress Note Progress Note: History of Present Illness/Interim History: [] The patient is a 31-year-old single female with a longstanding history of anxiety and depression and OCD and history of alcohol use disorder who is seen in follow-up at the [facility] behavioral health IOP program. I last saw the patient 2 weeks ago and at that time no medication changes were made as the patient refused any medication changes as she wanted to treat her ADHD adequately first. Patient is really enjoying the program and feels she is really benefiting from it. She feels she is learning valuable skills that can help her deal with her mental health issues. She is still on leave from work. Her doctor discontinued her Concerta 1 week ago as she felt the patient was perseverating too much on her ADD diagnosis and that it had coincided somewhat with the Concerta. The patient feels that her mind has relaxed somewhat since stopping the Concerta and she has somewhat less focused or perseverating on her OCD on her ADHD diagnosis. Her mood is still depressed but she feels a little better than 2 weeks ago. She still has hopelessness, worthlessness and continues to ruminate negatively. She still has passive thoughts that she wishes she had never been born but denies not caring if she . She also denies suicidal ideation, homicidal ideation, hallucinations, delusions. Current Psychiatric Medications: [] Effexor XR 225 mg p.o. daily (on this for 2 years); trazodone 50 to 100 mg nightly as needed for sleep; BuSpar 30 mg p.o. daily (added 1 week ago). Mental Status Examination: [] The patient is a 31-year-old obese female who is seen wearing a mask due to the pandemic and is casually dressed and groomed with good hygiene. She has no psychomotor agitation or retardation. She is ambulatory with a normal gait and is alert and oriented to person place and time. She is cooperative and pleasant during the interview. Eye contact is good and speech is normal rate and rhythm and fluent with no pressure. Mood is depressed and affect is full and normal. Thought process is goal-directed and organized. Thought content: There is evidence of thoughts of wishing she had never been born. There is no evidence of passive thoughts of , suicidal ideation, plan for suicide, homicidal ideation, hallucinations or delusions. She is less preoccupied with how the diagnosis of ADHD has impacted her life. Reality testing is intact. Judgment is intact. Impulsivity is low to moderate. Insight is good. Diagnoses: [] 1. Major depressive disorder, recurrent, moderate 2. OCD 3. Generalized anxiety disorder 4. ADHD 5. Alcohol use disorder in remission since July, 6. PCOS 7. Obesity: Status post gastric sleeve surgery in 2008 Plan: [] The patient will continue the IOP program at [facility] as the structure, support, education and group therapy will hopefully prevent worsening of the patient's symptoms. The patient felt safe during the interview and if it anytime she does not feel safe she will let us know or go to the emergency room. The risk, options, possible complications and side effects of medications were again discussed with the patient and she understands accepts these. The patient does not wish to have any medication changes made and wishes to allow her outpatient doctor to control her medication regimen. I will see the patient in follow-up while she is in the program and she will continue to follow-up with her outpatient psychiatric and medical providers.
--- NOTE | 2022-02-02 13:46 | BH.MDN_ITS ---
Multi-Disciplinary Note - Note 45-min Individual Time Started:: 11:20 Date: 02/02/22 Purpose of session/treatment goals addressed:: To work on goal #1 of pt's treatment plan. Another goal was to discuss boundaries pt wants to set. Eye Contact:: Good Motor Activity:: Restless Appearance:: Casual Speech:: Rambling, Rapid Mood:: Anxious, Depressed Affect:: Congruent - tearful throughout session Thoughts:: Racing, Circular, No evidence of hallucinations/delusions noted Staff Interventions:: thought challenging, motivational interviewing, rapport building, strengths perspective, goal setting Client Response:: Pt responded well to session, open to meeting with therapist. Pt tearful throughout session and shared she recently had a medication change that pt hopes will be helpful. Pt continues to struggle with her self-worth and negative thinking. Pt is ruminating negatively and reports she is having a difficult time living at home. Pt shared she loves her parents and they do a lot for pt, but pt feels guilty when she has to set boundaries. Discussed boundary setting and how it can help relationships as well as the barriers to setting boundaries. Pt also reflected on what has led to the unrealistic expectations for herself and how she has formed such negative self-talk. Pt reported her current job has reinforced a lot of anxiety and negative thinking about herself. Pt is considering if this is a healthy work environment or not. Pt willing to do some reflective writing for homework to further explore her boundaries, values, and needs. Pt also encouraged to practice calming skills and to not engage in as much researching. Risks/Concerns:: Pt denies any active SI, plan, or intent as of 02/02/22. Pt does admit that she does not care if she fell asleep and did not wake up. No HI. Future oriented. Progress Toward Goals/Plan:: Pt demonstrates consistent attendance and engages well during group discussions. Pt is showing progress with increasing self- awareness of boundaries, negative thinking patterns, and unrealistic expectations. Pt is tearful throughout sessions and continues to endorse a depressed mood with rumination, hopelessness, worthlessness, and self- deprecation. Pt will continue IOP tx to prevent decompensation, improve daily functioning, and increase ability to manage negative thought patterns. Time Stopped:: 12:05
== END 2022-02-02 23:59 ==
LOC: BHIOP 08:00
PROVIDERS: Referring Provider Psychiatry & Neurology Psychiatry; Visit Provider Psychiatry & Neurology Psychiatry
DX: F33.1 Major depressive disorder, recurrent, moderate (principal); F42.9 Obsessive-compulsive disorder, unspecified; F41.1 Generalized anxiety disorder; E66.9 Obesity, unspecified; Z98.84 Bariatric surgery status; Z79.899 Other long term (current) drug therapy; E28.2 Polycystic ovarian syndrome
CPT/HCPCS: S9480; 90832; 90834; 90837; 90853

== ENCOUNTER 2022-02-03 07:44 | Outpatient (RCR) | payer OTHER, SELFPAY ==
[2022-02-03 00:46] VITALS: BP 156/107; PULSE 74
--- NOTE | 2022-02-03 09:00 | BH.SGPN.GN ---
Behaviors/Verbalizations/Mental Status: [] Eye contact is good. Motor activity is appropriate. Appearance is dischevled. Speech is Appropriate. Mood is anxious. Affect is congruent. Thoughts are linear and logical. No evidence of psychosis. Reviewed daily check in sheet and no reports of suicidal ideations or intent. Client Response/Progress/Benefit: [] Pt was an active participant in group discussion on healthy ways to improve sleep. Attentive. Daily symptom tracker notes 09/07 for anxiety. Mental health win was ? I went to [facility]? and was able to manage my thoughts and anxiety. Typically, this is a trigger for her and can sometimes lead to panic. States ?I?m in a good mood however high anxiety today? Was not able to identify a trigger however currently is going through some medication changes which she is apprehensive about. Emotion for today is ?uneasy?. She is ruminating on the medication changes. Her goal is to reduce her caffeine intake and so far ?I?m sticking to my plan?. Shared how she believes this will benefit her mental health. Benefited from group support, encouragement, and feedback. Will continue in [facility] to maintain safety, increase healthy coping, and improve functioning. Narrative Note: []
--- NOTE | 2022-02-08 11:05 | BH.SGPN.GN ---
Behaviors/Verbalizations/Mental Status: [] Client alert and oriented, neatly dressed and groomed. Eye contact good. Motor activity appropriate. Speech within normal limits. Affect congruent, mood euthymic. Thoughts linear, logical, no signs of hallucinations or delusions. Client Response/Progress/Benefit: [] Client engaged in session AEB contributing to discussion and engaging in activity. Client did well to review current conflict style and its impact on mental health. Attentive during discussion on strategies for more effectively managing conflict in personal life. Client participated in activity and did well to be assertive and collaborating. Client given handout on fair fighting rules. Client indicated that she was going to increase use of describing feelings in words instead of assuming the other person know's how she is feeling. Appeared to benefit from gaining strategies to help client better manage conflict. Will continue IOP tx to increase self care, increase overall functioning, and increase self worth. Narrative Note: []
--- NOTE | 2022-02-08 13:31 | BH.TPR ---
Treatment Plan Review Date of Admission:: 01/17/22 Date of Treatment Plan Review:: 02/08/22 Admitting Diagnoses:: Major depressive disorder, recurrent, moderate F 33.1; Obsessive-compulsive disorder; Generalized anxiety disorder; ADHD; Alcohol use disorder in remission since July 2021 Current Diagnoses:: Major depressive disorder, recurrent, moderate F 33.1; Obsessive-compulsive disorder; Generalized anxiety disorder; ADHD; Alcohol use disorder in remission since July 2021 Patient's Response to Treatment:: Pt has responded well to treatment AEB pt consistently attending IOP sessions and reduction of depressive symptoms since admission. Pt contributes well during individual sessions and actively contributes during group sessions. Pt applies coping skills outside of IOP and reports improved boundary setting, thought challenging, and follow through with goals. Status of Current Problems and Symptoms: Pt's symptoms are ongoing. Pt's anxiety remains the same since admission, per the DSM-5, but pt reports she is using healthier coping skills and pt is working on reducing caffeine. Pt continues to struggle with feelings of guilt, negative core beliefs, self-validation, lack of acceptance, and internal conflict. Pt also has some stressors from living with her parents and finances. Problem #1 Problem Name:: depressive symptoms, lack of motivation, and passive thoughts of Status of Goals:: Objective 1- complete with ongoing work encouraged. Pt?s DSM-5 scores for depression have decreased by 38% since admission and pt has not been reporting any passive SI or thoughts of . Pt has been using opposite action and working on organizing at home. Objective 2- in progress. Pt is working on catching negative self-talk statements and using self-compassion to reduce guilt and self-judgment. Team Recommendations:: Treatment team recommends working on self-acceptance, self-compassion, and challenging negative core beliefs. Treatment team also encourages pt to work on reaching out and strengthening healthy relationships. Problem #2 Problem Name:: anxiety, racing thoughts, OCD Status of Goals:: Objective 1- in progress. Pt?s scores for anxiety and OCD did not decrease since admission, but pt?s scores did not worsen. Pt reports using healthier coping skills such as keeping track of her wins, setting boundaries, and reducing caffeine. Objective 2- in progress. Pt is working on reducing her obsession/intrusive thoughts around her mental health and future. Pt has been trying to reduce researching and will begin practicing grounding twice a day. Team Recommendations:: Treatment team recommends pt continue exploring options for employment, continuing to practice dialectical thinking, and boundary setting. Pt is encouraged to continue working on reducing caffeine as pt has shared this worsens anxiety.
--- NOTE | 2022-02-08 15:37 | BH.MDN ---
Multi-Disciplinary Note - Note 60-min Individual Time Started:: 10:15 Date: 02/08/22 Purpose of session/treatment goals addressed:: To work on goal #1 of pt's treatment plan. Another goal was to increase the use of calming skills throughout the day. Eye Contact:: Good Motor Activity:: Restless Appearance:: Casual Speech:: Rambling, Rapid Mood:: Anxious, Depressed Affect:: Congruent - tearful Thoughts:: Racing, Circular, No evidence of hallucinations/delusions noted Staff Interventions:: thought challenging, mindfulness skills, strengths perspective, reviewed DSM-5, taught coping skills, other - gave pt homework to practice grounding/mindfulness skills twice a day. Client Response:: Pt responded well to session, open to meeting with therapist. Pt reports having a good, but difficult session with her outpatient therapist yesterday. Pt shared this time of year along with some triggers over the weekend, has brought back some upsetting memories for pt. Pt recalled the time she spent in the hospital when she was actively addicted to alcohol and how her family treated her at the time. Pt has been looking back at other interactions and the difference in expectations pt has compared to her siblings. Pt able to gain insight that these experiences have shaped negative core beliefs such as not being good enough, getting the scraps, and not being worthy of validation. Pt is triggered now when people invalidate her or disrespect her boundaries which is what happened over the weekend. Pt did well processing these and had to take a moment to breathe to reduce anxiety. Pt also receptive to in the moment thought challenging using self-compassion. Pt receptive to working on using calming skills for homework and practicing self-compassion. Risks/Concerns:: Pt denies any suicidal ideations, plan, or intent as of 02/08/22. No HI. Future oriented. Progress Toward Goals/Plan:: Pt is making progress towards her tx goals AEB her reduction of depression symptoms and report of setting boundaries. Pt has been reducing caffeine intake to help with anxiety and she is practicing a lot of self-reflection which is both helpful and triggering. Pt continues to endorse crying spells, guilt, negative core beliefs, ruminations and obsessions, and inability to function at her baseline. Pt will continue IOP tx to prevent decompensation, increase emotional regulation and thought challenging skills, and improve daily functioning. Time Stopped:: 11:15
--- NOTE | 2022-02-10 09:05 | BH.SGPN.GN ---
Behaviors/Verbalizations/Mental Status: [] Client alert and oriented, casually dressed and groomed. Eye contact good. Motor activity appropriate. Speech within normal limits. Affect congruent, mood euthymic. Thoughts linear, logical, no signs of hallucinations or delusions. Reviewed client?s symptom tracker, no risk for suicidal ideation, plan, or intent as of 02/10/22 Client Response/Progress/Benefit: [] Client responded well to group by being attentive and participating in group and providing input to other group members. Reported that her emotion was hopeful. Client shared how she was proud of herself for fixing her car mirror instead of procrastinating it with indicating she felt fulfilled afterwards. Client reported how she has been more successful lately with setting boundaries with her mom and focusing more on her feelings vs blame when talking to her mom. Client seemed to benefit from input from other group members on their experiences with boundary setting. She will continue IOP tx to decrease cognitive distortions, reduced irritability, and increase overall functioning. Narrative Note: []
--- NOTE | 2022-02-10 10:10 | BH.SGPN.GN ---
Behaviors/Verbalizations/Mental Status: [] Client alert and oriented, casually dressed and groomed. Eye contact good. Motor activity appropriate. Speech within normal limits. Affect congruent, mood euthymic. Thoughts linear, logical, no signs of hallucinations or delusions. Client Response/Progress/Benefit: [ ] Client responded well to session, contributing to discussion and engaged during the activity. Attentive during discussion with connecting to quote by saying that there is a balance shift when making changes. Client discussed that for her being unhappy has led her to take action and make changes in her life. Group identified the things that keep them stuck and prevent change that included: lack of supports, relying on other's opinions of us, and fear of failure. Client identified things she want's to get rid of and take control in her life are self doubt and fear of success. Client shared that if these things were gone she would enjoy life more. Client reported she started changes so far by setting boundaries with herself and others. Benefited from increased awareness and understanding of emotions, benefits, and barriers related to change. Will continue IOP tx to continue to increase self-compassion, gain healthy coping skills, and decrease cognitive distortions that lead to anxiety and depression. Narrative Note: []
--- NOTE | 2022-02-10 11:10 | BH.SGPN.GN ---
Behaviors/Verbalizations/Mental Status: []Pt alert and oriented, casually dressed and groomed. Eye contact good. Motor activity appropriate. Speech within normal limits. Affect congruent, mood euthymic. Thoughts linear, logical, no signs of hallucinations or delusions. Client Response/Progress/Benefit: []Pt was an active participant in group discussion. Attentive during psychoeducation on the Zones of Change which included the comfort zone, learning zone, and danger zone. Pt along with peers participated in interactive discussion regarding behaviors, thoughts, and feelings associated with each zone. Participated in group activity in which they developed a plan to take action on something they wished to change. Pt chose to take action on dealing with emotions instead of avoiding them in which she identified a SMART goal to identify my emotion every day and the behaviors and thoughts the emotions makes me want to do.? Identified supports that pt needed as writing or drawing her emotions and reaching out to old supports. Benefited from increased self-aware of zones of change and developing an action plan. Will continue in IOP to reduce negative self-talk, improve daily functioning, and increase self-confidence. ? Narrative Note: []
--- NOTE | 2022-02-11 09:05 | BH.SGPN.GN ---
Behaviors/Verbalizations/Mental Status: [] Eye contact is good. Motor activity is appropriate. Appearance is disheveled. Speech is Appropriate. Mood is anxious. Affect is congruent. Thoughts are linear and logical. No evidence of psychosis. Reviewed daily check in sheet and no reports of suicidal ideations or intent. Client Response/Progress/Benefit: [] Pt was an active participant in group discussions. Attentive. Provided appropriate feedback. Daily symptom tracker notes 4/5 for depression and 4/5 for irritability. Emotion for today is ?proud?. Shared that her mental health win is ?working through stressors and obstacles this morning?. She shared the stressors that she encountered this AM and how typically they would have led to excessive worry, ruminations, and feelings of guilt. States that this AM she was able to implement skills which significantly minimized the impact of her thoughts on her emotions and behaviors. She also reports some health issues and again is implementing reframing and challenging to better it risk and assurance senior manager anxiety surround her health. Progress noted per pt report. Benefited from group support, encouragement, and feedback. Will continue in IOP to maintain gains, increase healthy coping, and increase functioning to return to work. Narrative Note: []
--- NOTE | 2022-02-11 11:10 | BH.SGPN.GN ---
Behaviors/Verbalizations/Mental Status: []Pt alert and oriented, casually dressed and groomed. Eye contact good. Motor activity appropriate. Speech within normal limits. Affect constricted, mood anxious. Thoughts linear, logical, no signs of hallucinations or delusions. Client Response/Progress/Benefit: []Pt receptive of session, engaged throughout AEB pt actively listening and contributing to discussion, as well as taking notes.? Pt participated in the experiential activity and did well to communicate ideas with peers and manage emotions. Pt identified she felt frustrated and anxious, but she practiced using calming skills and assertive communication to cope. Pt and group processed how the emotions and perspective of the group impacted the activity. Group worked together to identify different coping skills to help manage pitfalls. Pt identified pitfalls they struggle with such as quitting when things are hard, being reactive, and unrealistic expectations. ?Pt plans to work on these pitfalls by using ?deal? thinking and sitting with the uncomfortable. Benefited from identifying personal pitfalls and strategies to overcome these pitfalls. Will continue IOP tx to reduce negative thinking patterns, improve emotional regulation skills, and improve daily functioning. ?? Narrative Note: []
--- NOTE | 2022-02-14 10:00 | BH.SGPN.GN ---
Behaviors/Verbalizations/Mental Status: [] Eye contact is good. Motor activity is appropriate. Appearance is casual. Speech is Appropriate. Mood is euthymic. Affect is full. Thoughts are linear and logical. No evidence of psychosis. Client Response/Progress/Benefit: [] Pt was an active participant in group discussions. Attentive during psychoeducation. Participated with peers in experiential activity. Pt participated in an interactive discussion with peers in which they worked together to define what coping skills are. Group then identified unhealthy coping skills which included; lashing out, hurting oneself, isolating, substance abuse, ignoring, sleeping to escape, and retail therapy. Psychoeducation on internal vs external coping skills. After experiential activity pt identified that I need to rework my external support. She also had insight that her internal coping skills are poor. Benefited from increased awareness and education the benefits of have both internal and external coping skills. Will continue in IOP to maintain gains, increase healthy coping, and improve functioning to return to work. Narrative Note: []
--- NOTE | 2022-02-16 09:05 | BH.SGPN.GN ---
Behaviors/Verbalizations/Mental Status: [] Eye contact is good. Motor activity is appropriate. Appearance is casual. Speech is Appropriate. Mood is anxious. Affect is congruent. Thoughts are linear and logical. No evidence of psychosis. Reviewed daily check in sheet and no reports of suicidal ideations or intent. Client Response/Progress/Benefit: [] Pt was an active participant in the group discussion. Attentive. Daily symptom tracker notes 07/10 for anxiety and depression. Mental health wins are ?some of my thinking and thought patterns are changing?. States that the skills that she has been learning in [facility] are starting to sink in and it is easier to implement the changes. She talked at length regarding how the amount of information in the first few weeks was overwhelming how it appears ?things? are slowing down and she is more confident in her ability to utilize skills. ?I?m working skills into my routines?. Also shared that it is her 5th day w/o caffeine which she also believes has helped with her anxiety. Her stressor is that she is planning to leave the job she has been on FMLA from, and she discussed her thoughts and reasons for this. This career change has caused some anxiety and fear about change. Progress noted per pt report. Benefited from group support, encouragement, and feedback. Will continue in [facility] to maintain gains, improve functioning, and increase healthy coping skills. Narrative Note: []
--- NOTE | 2022-02-16 11:00 | BH.SGPN.GN ---
Behaviors/Verbalizations/Mental Status: []Pt alert and oriented, neatly dressed and groomed. Eye contact good. Motor activity appropriate. Speech within normal limits. Affect congruent, mood euthymic. Thoughts linear, logical, no signs of hallucinations or delusions. Client Response/Progress/Benefit: []Pt responded well to session as evidenced by Pt listening attentively to others and providing strategies during discussion.? Pt identified personal warning signs for crisis and gained further awareness of earliest warning signs. Pt created a crisis action plan to help Pt better manage warning signs for crisis. Pt?s action plan included warning signs such as avoiding others and topics, crying more frequently, and increased impulsivity. Pt?s coping skills included including ?fun? things in necessary tasks, writing about stressors, watching something funny, art, delay distract, decide, and asking herself why she needs something before buying. Pt appeared to benefit from creating a crisis action plan and increasing self-awareness. Pt will continue IOP tx to promote use of healthy coping skills, increase mood stability, and combat distortions reinforcing anxiety and depression. Narrative Note: []
--- NOTE | 2022-02-16 11:43 | PCM.BH.PN_ITS ---
Progress Note Progress Note: History of Present Illness/Interim History: [] The patient is a 32-year-old single female with a long history of anxiety anxiety, depression, OCD and recent diagnosis of ADHD who is seen in follow-up at the [facility] behavioral health IOP program. I last saw the patient 2 weeks ago and at that time no med changes were made as the patient wanted to have her outpatient doctors manage her medications. She had been on Concerta for ADHD and discontinued that several weeks ago. BuSpar was added to her regimen and the dose was increased several weeks ago. Patient states that she is enjoying the IOP program tremendously and feels she is learning a lot of valuable skills to help manage her mental health issues. Her mood is better and she feels less depressed than before. She stopped caffeine use a week or 2 ago and feels less restless because of this. She has a few new stressors including the fact that her leave from work and after the end of next week and she plans on changing jobs soon. 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 Another stressor is some recurrence of knee pain in her knee that with had prior surgery and but she is seeing her doctor soon for this. She still ruminates negatively and is very hard on her self but she feels this is also getting a little bit less intense. She denies passive thoughts of , suicidal ideation, homicidal ideation, hallucinations or delusions. OCD is manageable still with some issues around cleanliness. Current Psychiatric Medications: [] Effexor XR 225 mg p.o. daily (x2 years); trazodone 50 to 100 mg p.o. nightly as needed for sleep; BuSpar of uncertain dose, dose increased 2 weeks ago. Mental Status Examination: [] The patient is an obese 32-year-old female who appears normal for stated age and is casually dressed and groomed with good hygiene. She is seen wearing a mask due to the pandemic and is ambulatory with a normal gait. She is alert and oriented to person place and time. She has no psychomotor agitation or retardation. She is cooperative and pleasant during th e evaluation. She is less talkative and less rambling during the interview than she was initially at the initial evaluation. Eye contact is good and speech is normal rate and rhythm and fluent with no pressure. Mood is minimally depressed to euthymic. Affect is full and normal. Thought process is goal- directed and organized. Thought content: The patient is hopeful for the future and plans to try another medication for ADHD soon. There is no evidence of passive thoughts of , suicidal ideation, plan for suicide, hallucinations, delusions or homicidal ideation. Reality testing is intact. Judgment is intact. Impulsivity is low. Insight is good. Diagnoses: [] 1. Major depressive disorder, recurrent, moderate (resolving) 2. Obsessive-compulsive disorder 3. Generalized anxiety disorder 4. Possible ADHD 5. Alcohol use disorder in remission since July 2021 6. PCOS 7. Obesity: Status post gastric sleeve surgery in 2008 Plan: [] The patient will continue the IOP program at [facility] as the structure, support, education and group therapy will hopefully prevent worsening of the patient's symptoms. She felt safe during the interview and if it anytime she does not feel safe she will let us know or go to the emergency room. The patient does not wish any medication changes as she wants her outpatient providers to manage her medications. She will continue to follow-up with her outpatient psychiatric and medical providers and I will see the patient in follow-up in 3 or 4 weeks.
--- NOTE | 2022-02-17 09:05 | BH.SGPN.GN ---
Behaviors/Verbalizations/Mental Status: [] Eye contact is poor. Motor activity is appropriate. Appearance is casual. Speech is Appropriate. Mood is euthymic. Affect is congruent. Thoughts are linear and logical. No evidence of psychosis. Reviewed daily check in sheet and no reports of suicidal ideations or intent. Client Response/Progress/Benefit: [] Pt was an active participant in group discussion. Attentive. Daily symptom tracker notes 3/5 for anxiety and 2/5 for irritability. Mental health win is that ? I managed stressors yesterday w/o a meltdown?. She talked at length regarding her stressors which included putting in her 2 weeks? notice at work, going to [employer], and other ?family issues?. She shared with the group how these events 4 weeks ago would have significantly impacted her mental health and led to ruminations, panic, and depression, however currently she believes that she is working through and processing stressors w/o them impacting her functioning. Progress noted. Benefited from group support, encouragement, and feedback. Will continue in IOP to maintain progress, increase healthy coping, and transition back to work. Narrative Note: []
--- NOTE | 2022-02-17 10:15 | BH.SGPN.GN ---
Behaviors/Verbalizations/Mental Status: []Pt alert and oriented, casually dressed and groomed. Eye contact good. Motor activity appropriate. Speech within normal limits. Affect congruent, mood euthymic. Thoughts linear, logical, no signs of hallucinations or delusions. Client Response/Progress/Benefit: []Pt responded well to session AEB contributing to discussion, taking notes, and listening attentively to others. Group discussed the benefits of managed anger and anger as a secondary emotion. Pt shared perspective on negatives from acting out in anger as stress and more mental health issues.? Pt completed anger iceberg worksheet, reporting outward personal signs of anger as being short with people, yelling, and shutting down.? Identified underlying emotions that contribute to anger including shame, insecurity, feeling left out, and jealousy. Appeared to benefit from increased knowledge of the underlying emotions that impact anger and increased self-awareness of the internal and external consequences of anger. Will continue IOP tx to further reduce intensity of symptoms, increase self-confidence, and reduce negative thinking patterns. ? Narrative Note: []
--- NOTE | 2022-02-17 13:42 | BH.MDN ---
Multi-Disciplinary Note - Note 45-min Individual Time Started:: 11:20 Date: 02/17/22 Purpose of session/treatment goals addressed:: To reflect on progress, barriers, and current stressors. Another goal was to discuss work plan and personal goals. Eye Contact:: Good Motor Activity:: Appropriate Appearance:: Casual Speech:: Appropriate Mood:: Euthymic, Anxious Affect:: Congruent Thoughts:: Logical, Racing, No evidence of hallucinations/delusions noted Staff Interventions:: thought challenging, CBT techniques, discharge planning, strengths perspective, goal setting, other - discussed work and career change. Client Response:: Pt responded well to session, open to meeting with therapist. Pt reported she put her two-week notice in for work and she is very happy about this decision. Pt recognizes this was an unhealthy work environment, but she is still worried about her next steps. 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 Pt had a long talk with her mother about this decision and pt felt that she was able to manage her emotions, advocate for herself, and see her mother's perspective of concern. Pt continues to work on challenging negative self-talk, set boundaries, and calmly and assertively communicating with her mother. Pt's negative core beliefs are often triggered when talking with her mother which has led to arguments in the past. Pt is also working on increasing supports as pt has few close friends. Reviewed dialectical thinking strategies as well as ideas for increasing supports. Risks/Concerns:: Pt denies any active SI, plan, or intent. Pt is future oriented. Pt does admit to thoughts of still. Progress Toward Goals/Plan:: Pt continues to make progress towards tx goals AEB pt's self report of reduced intensity of symptoms, reduced crying spells, and increasing self-confidence. Pt recently put her two-week notice in for work and is in the process of finding a new job which is a stressor. Pt also continues to endorse ruminations and negative self-talk, but pt is working on this. Pt will continue IOP tx to promote gains, help pt navigate work-related stressors, and improve self-confidence. Time Stopped:: 12:05
--- NOTE | 2022-02-21 09:10 | BH.SGPN.GN ---
Behaviors/Verbalizations/Mental Status: []Pt alert and oriented, casually dressed and groomed. Eye contact good. Motor activity appropriate. Speech within normal limits. Affect congruent, mood euthymic and anxious. Thoughts linear, logical, no signs of hallucinations or delusions. Reviewed pt?s symptom tracker, no risk for suicidal ideation, plan, or intent as of 02/21/22. Client Response/Progress/Benefit: []Pt responded well to session AEB pt sharing thoughts and feelings, as well as listening attentively to others. Pt stated current mental health wins include going on a date over the weekend and setting small goals for this week. Went on to indicate struggling with high anxiety and overthinking things, so breaking things into small weekly goals has been helpful in reducing overall anxiety levels. Shared that determining her next steps career palma has been an ongoing stress, but she is successfully taking steps to address this without overwhelming herself. Progress noted with pt reporting improved mood and skill application, decreased anxiety, and improved daily functioning. Pt to continue IOP to increase continued use of healthy coping skills, further improve stress management, and prevent decompensation. Narrative Note: []
--- NOTE | 2022-02-21 10:10 | BH.SGPN.GN ---
Behaviors/Verbalizations/Mental Status: []Client alert and oriented, casually dressed and groomed. Eye contact good. Motor activity appropriate. Speech within normal limits. Affect congruent, mood euthymic. Thoughts linear, logical, no signs of hallucinations or delusions. Client Response/Progress/Benefit: []Client receptive to session AEB contributing to discussion and listening attentively to others. Taking notes. Worked with group to brainstorm the positive and negative aspects of stress on physical and mental health. Group did well to identify the benefits of stress as well as the impact of distress on performance and mental health. Client identified their personal top stressors as: finding a career she enjoys, living at home, and worry about the future. Client reports when the stress overflows client reacts with irritability and avoidance. Client seemed to benefit from increased awareness of current stressors and impact stress has on mental health. Recommended to continue IOP tx to continue use of healthy coping skills, challenge distorted thoughts and prevent decompensation.
--- NOTE | 2022-02-21 11:20 | BH.SGPN.GN ---
Behaviors/Verbalizations/Mental Status: []Pt alert and oriented. casually dressed and groomed. Eye contact good. Motor activity appropriate. Speech within normal limits. Affect congruent, mood euthymic. Thoughts linear, logical, no signs of hallucinations or delusions. Client Response/Progress/Benefit: []Pt participated at times during group discussions. Attentive during psychoeducation on the 4 A's of Coping with Stress (Avoid, Alter, Adapt, Accept). Participated in experiential activity in which group members had to utilize stress management skills in the moment. Pt did well to problem-solve and express ideas to peers. Pt engaged in review of the 4 A?s and picked wanting to work on adapting new, more realistic expectations for herself. Benefited from processing in the moment stress management strategies and identifying new ways to cope with stress. Will continue in IOP tx to promote use of healthy coping skills, increase mood stability, and further combat distortions. ? Narrative Note: []
--- NOTE | 2022-02-23 09:00 | BH.SGPN.GN ---
Behaviors/Verbalizations/Mental Status: []Pt alert and oriented, casually dressed and groomed. Eye contact good. Motor activity appropriate. Speech within normal limits for pt-rapid. Affect congruent, mood disappointed. Thoughts linear, logical, no signs of hallucinations or delusions. Reviewed pt?s symptom tracker, no risk for suicidal ideation, plan, or intent as of 02/23/22 Client Response/Progress/Benefit: []Pt responded well to session, actively listening and contributing ideas. Pt reports feeling hurt this morning which is triggered by a recent experience pt had leaving her job. Pt processed these emotions and was able to see gains in how she handled the emotions, thoughts, and stressors. 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 Per pt's daily symptom tracker, pt is functioning better than normal and her moods have been more stable. Pt appeared to benefit from reflecting on how she is coping with current stressors. Pt will continue IOP tx to reinforce healthy coping skills, further increase mood stability, and combat distortions. Narrative Note: []
--- NOTE | 2022-02-23 11:10 | BH.SGPN.GN ---
Behaviors/Verbalizations/Mental Status: []Client alert and oriented, casually dressed and groomed. Eye contact good. Motor activity appropriate. Speech within normal limits. Affect congruent, mood euthymic, anxious. Thoughts linear, logical, no signs of hallucinations or delusions. Client Response/Progress/Benefit: []Client engaged during activity and contributed as group brainstormed ideas on how to cope with internal barriers that keep clients stuck from moving towards goals. Able to identify barriers to desired reality. Client identified wanting to work on overcoming the barrier of unrealistic expectations of others by more consistently using thought challenging questions such as ?what would be realistic in this moment??. Shared that this will help her to feel a little more supported and connected with supports. Benefited from group by identifying obstacles and solutions to desired reality. Client will continue IOP tx to reduce distortions and improve insight into own mental health symptomology, increase use of healthy anxiety management skills, as well as continue to improve overall functioning. Narrative Note: []
--- NOTE | 2022-02-23 11:20 | BH.MDN_ITS ---
Multi-Disciplinary Note - Note 30-min Individual Time Started:: 10:10 Date: 02/23/22 Purpose of session/treatment goals addressed:: To challenge distortions and unrealistic expectations, increase effective communication skills, and process current stressors. Eye Contact:: Good Motor Activity:: Appropriate Appearance:: Casual Speech:: Rambling Mood:: Anxious, Other - hurt Affect:: Congruent Thoughts:: Racing, Circular, No evidence of hallucinations/delusions noted Staff Interventions:: thought challenging, CBT techniques, strengths perspective, goal setting Client Response:: Pt responded well to session, open to meeting with therapist. Pt reports she has a lot of stressors right now, but pt expressed feeling proud of her self for how she is coping. Pt did admit that she lashed out at her mother and pt shared I think it's because she is my safe person. Pt is still working on better communicating with her mother, but this is especially difficult for pt when she feels a negative core beliefs is activated. Pt proces sed a recent situation that triggered a negative core belief and was able to challenge her perspective. Pt recognizes that she is often hurt when people do not show the same thoughtfulness and appreciation pt would. Discussed how this can be a set up for pt and her supports. Pt willing to communicate with her family about her expectations and what makes her feel appreciated. Pt also processed recent stressors with leaving her job and extended family. Pt is able to talk about these stressors now without crying and pt has improved with problem-solving solutions. Risks/Concerns:: Pt denies any suicidal ideations, plan, or intent as of 02/23/22. Future oriented. Progress Toward Goals/Plan:: Pt continues to make progress towards her tx goals AEB pt's report of using healthy coping skills on a much more consistent basis, leaving a toxic job, and reduced crying spells. Pt continues to struggle with irritability and lashing out at her mother, but pt is aware of this and actively working on it per her report. Pt also endorses ruminations, frequent personalizing, and difficulty communicating needs at times. Pt will continue IOP tx for one more week to reinforce healthy coping skills, continue to combat distortions, and help pt cope with finding new employment. Time Stopped:: 11:05
--- NOTE | 2022-02-24 09:05 | BH.SGPN.GN ---
Behaviors/Verbalizations/Mental Status: [] Eye contact is good. Motor activity is appropriate. Appearance is casual. Speech is Appropriate. Mood is euthymic. Affect is full. Thoughts are linear and logical. No evidence of psychosis. Reviewed daily check in sheet and no reports of suicidal ideations or intent. Client Response/Progress/Benefit: [] Pt was an active participant in group discussions. Attentive. Daily symptom tracker notes 08/07 for anxiety. Emotion for today is ?uneasy excitement?. Mental health win was utilizing a skills to help minimize ruminations. She wrote out her thoughts on a letter in order to ?let my thoughts out?. Shared how this was a healthy skill b/c it allowed her to not ruminate extensively on a certain stressor. She is going through a transition with her career as she is leaving current job and pursing another career path. This is both exciting and anxiety producing. She discussed other stressors and how she is learning to reframe, challenge and accept rather than unhealthy coping skills of the past. Benefited from group support, encouragement, and feedback. Will continue in IOP to maintain safety, increase healthy coping, and improve functioning. Narrative Note: []
--- NOTE | 2022-02-24 10:10 | BH.SGPN.GN ---
Behaviors/Verbalizations/Mental Status: []Pt alert and oriented, neatly dressed and groomed. Eye contact good. Motor activity appropriate. Speech within normal limits. Affect congruent, mood euthymic. Thoughts linear, logical, no signs of hallucinations or delusions. Client Response/Progress/Benefit: []Pt responded well to session AEB taking notes throughout and listening attentively to others. Pt was attentive throughout group activity identifying famous individuals and how they overcame failure to be successful. Pt helped group identify how fear of failure can impact mental health and relationships. Pt personally identified it leads to ?half-assing? things and quitting early. Pt participated in experiential activity and pt made the connect of how progress is not linear and setting ?back? is okay. Appeared to benefit from increased knowledge of fear of failure. Pt showing progress in her ability to regulate anxiety and reduce crying spells. Will continue IOP tx to reinforce healthy coping skills, further combat distortions, and establish aftercare. Narrative Note: []
--- NOTE | 2022-02-24 11:10 | BH.SGPN.GN ---
Behaviors/Verbalizations/Mental Status: []Pt alert and oriented, casually dressed and groomed. Eye contact good. Motor activity appropriate. Speech within normal limits. Affect congruent, mood euthymic. Thoughts linear, logical, no signs of hallucinations or delusions. Client Response/Progress/Benefit: []Pt responded well to session, engaged in the experiential activity and attentive throughout group processing. Pt reported fear of failure has kept pt from moving into a new career. Pt completed fear of failure worksheet and was able to identify thoughts and behaviors that reinforce personal fear of failure including avoiding things she is not confident in, giving more value to other people?s expectations, and self-doubt. Pt participated in small group discussion regarding strategies to overcome fear of failure. Identified wanting to work on starting with small goals to build confidence to reduce avoidance. Appeared to benefit from increased knowledge of strategies to combat fear of failure and gaining self-awareness. Pt will continue IOP tx to further reduce negative thinking, improve self-confidence, and reinforce healthy coping skills. Narrative Note: []
--- NOTE | 2022-03-01 09:00 | BH.SGPN.GN ---
Behaviors/Verbalizations/Mental Status: [] Client alert and oriented, casually dressed and groomed. Eye contact good. Motor activity appropriate. Speech within normal limits. Affect congruent, mood euthymic. Thoughts linear, logical, no signs of hallucinations or delusions. Reviewed client?s symptom tracker, no risk for suicidal ideation, plan, or intent as of 03/01/22. Client Response/Progress/Benefit: [] Client responded well to group by actively participating throughout group. Reported that her emotion was neutral. Client shared that her knee appt went well for the most part, but still nervous about overall healing. Client discussed how she is finding herself being more present and increasing positive time spent with family. Client indicated that she feels better since she quit her job, but is stressed due to not being able to get a hold of HR. Client seemed to benefit from feedback from group members, along with validation and encouragement. She will continue IOP tx to increase coping skills and increase overall functioning with expected discharge this week. Narrative Note: []
--- NOTE | 2022-03-01 11:10 | BH.SGPN.GN ---
Behaviors/Verbalizations/Mental Status: [] Client alert and oriented, casually dressed and groomed. Eye contact good. Motor activity appropriate. Speech within normal limits. Affect congruent, mood euthymic. Thoughts linear, logical, no signs of hallucinations or delusions. Client Response/Progress/Benefit: [] Client was an active participant throughout AEB contributing to discussion, providing personal examples, and taking notes. Client provided input during discussion on the types of support our supports can provide. Client able to identify current support system and barriers that get in the way of using supports by drawing out their own support net. Client reported after identifying what type of supports they receive; they gained awareness that they could benefit from more social supports. Client identified steps to achieve this by go to a art class, spend more time with family socially, and put herself out there more. Client shared increasing these supports will help her feel more connected. Client seemed to benefit from identifying the type of support client needs to work on improving. Client recommended to continue IOP tx to prevent decompensation,increase self care, and increase emotional regulation skills. Narrative Note: []
--- NOTE | 2022-03-01 11:21 | BH.MDN ---
Multi-Disciplinary Note - Note 45-min Individual Time Started:: 10:20 Date: 03/01/22 Purpose of session/treatment goals addressed:: To address current stressors and discuss strategies to help cope with these stressors. Another goal was to discuss discharge and aftercare. Eye Contact:: Good Motor Activity:: Restless Appearance:: Neat Speech:: Rambling, Rapid Mood:: Euthymic, Anxious Affect:: Congruent Thoughts:: Logical, Circular, No evidence of hallucinations/delusions noted Staff Interventions:: discharge planning, strengths perspective, other - gave pt a maintenance plan to complete and reviewed this with pt. Client Response:: Pt responded well to session, open to meeting with therapist. Pt shared she had a good weekend overall, despite stressors with her family and leaving her job. Pt stated she feels much more confident managing stressors and they do not feel as heavy. 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 Pt reflected on her progress including managing stress better, improved self-compassion and expectations, and feeling more confident in her decisions. Pt wants to do IOP aftercare and will continue seeing her outpatient therapist after discharge. Risks/Concerns:: Pt denies any suicidal ideations, plan, or intent as of 03/01/22. Progress Toward Goals/Plan:: Progress maintained from last session including reduced crying spells, improved mood stability, reduced isolation, and leaving a toxic job. Pt self-reports managing stress much better than she has in the past few months. Pt is still working on regulating her emotions and communicating with her mother, but this is improving. Pt continues to endorse ruminations, anxiety, and personalizing, but over reports improved mood. Pt will continue IOP tx for two more sessions to reinforce healthy coping skills and establish aftercare. Time Stopped:: 11:00
--- NOTE | 2022-03-02 09:02 | BH.SGPN.GN ---
Behaviors/Verbalizations/Mental Status: []Pt alert and oriented, casually dressed and groomed. Eye contact good. Motor activity appropriate. Speech within normal limits. Affect congruent, mood euthymic. Thoughts linear, logical, no signs of hallucinations or delusions. Reviewed pt?s symptom tracker, no risk for suicidal ideation reported, denies plan, or intent as of 03/02/22. Client Response/Progress/Benefit: []Pt responded well to session, attentive and providing supportive feedback and encouragement to fellow participants throughout. Pt reports feeling ?content this morning as pt shared accomplishing several small tasks the previous day. Noted taking her cat to the vet rather than continuing to put it off, as well as challenging anxious thoughts associated with restarting on ADHD medication. Shared struggling with focusing on potential medication side effects in the past but has been doing well not to so far this time. Current stressor is ongoing issues with her former employer processing pt resignation. Did well to identify what is in her control in this situation. Pt appeared to benefit from support of the group environment. Pt to continue IOP tx to continue to improve anxiety management skills, reduce ruminating thoughts, and further improve mood stability. Narrative Note: []
--- NOTE | 2022-03-02 10:10 | BH.SGPN.GN ---
Behaviors/Verbalizations/Mental Status: []Pt alert and oriented, casually dressed and grooming appears tended to. Eye contact good. Motor activity appropriate. Speech within normal limits. Affect congruent, mood euthymic. Thoughts linear, logical, no signs of hallucinations or delusions. Client Response/Progress/Benefit: []Pt engaged throughout AEB taking notes, listening attentively, and providing input throughout. Attentive during psychoeducation and discussed the importance of goal-setting with the group. Group identified potential benefits of having goals to include: they motivate, increase self-confidence, provide a sense of accomplishment and give direction. Group also worked together to identify barriers to goal-setting which included; high expectations, negative thinking, and lack of motivation. Pt identified personal barriers to include negative thinking, but pt has improved with this. Benefited from increased awareness of benefits and barriers to goal-setting. Pt will continue in IOP for one more day to reinforce healthy coping skills and provide closure. Narrative Note: []
--- NOTE | 2022-03-03 09:01 | BH.SGPN.GN ---
Behaviors/Verbalizations/Mental Status: []Pt eye contact good, casually dressed, motor activity appropriate, speech normal rate and tone, mood euthymic, congruent affect, thoughts linear and intact, no evidence of delusions or hallucinations. Per client's symptom tracker she indicates no suicidal ideation, plan or intent. Client Response/Progress/Benefit: [] Client responded well to session as evidenced by listening attentively to others and sharing thoughts and feelings. Client identified mental health positive as going to [employer] yesterday to get her money back when she was charged too much when last week. Client identified this as a win because she has been ruminating on whether she should go or not for the last week. Client reported additional mental positive as officially being terminated from her own job so now she can continue to move forward. Client identified a current stressor as being to figure out insurance since her job is officially done. Stated she can note significant treatment progress since she started IOP with improved mood management, decreased ruminations, and improved outlook on her future. Client has made significant treatment progress and is to discharge from IOP to day. Narrative Note: []
--- NOTE | 2022-03-03 09:21 | BH.AFTERPLAN ---
Aftercare Plan - Demographics Treatment End Date:: 03/03/22 Psychiatrist:: Marci Melchor Psychiatrist Office #:: [phone] [facility] Therapist:: Lili Long Therapist Phone #:: [phone] - Plan Details Progress/Aftercare Plan Details:: Pt has made significant strides since starting IOP as shown by her improved mood, reduced symptoms by 50% overall, and increased ability to manage negative thinking. When Pt started IOP she was experiencing significant anxiety and depression that was keeping pt from living life. Now, Pt can catch and manage thoughts that reinforced anxiety and self-doubt, use healthy coping skills more easily, and she feels more confident in her abilities. 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 Pt was highly active in both group and individual therapy sessions. Pt contributed to group discussions, offered emotional support to peers, and consistently followed through with her goals. In individual sessions, Pt was receptive to feedback, consistent with homework, and willing to push herself despite anxiety. Pt?s high motivation, willingness to be uncomfortable, and joyful personality were likely the reason for her significant progress. Pt plans to attend [facility] aftercare as well as follow up with her outpatient providers. Strategies for Success:: 1. Opposite action! Continue to break that cycle of anxiety and depression by getting up and getting going. 2. Remember that thoughts are thoughts NOT facts! You have power in if you give thoughts the time of day or not. 3. self-care! You deserve to take time for you and you also deserve to face the not so fun self-care 4. Self-compassion! You are human and you will make mistake?BUT that doesn?t mean you are a failure or not good enough. Give yourself credit for all the wonderful things you do. 5. Unplug! Give yourself time each day away from electronics and research. 6. Practice deep breathing, calming self-talk, and grounding 7. Practice positive self-talk and keep track of your wins. 8. Remember progress isn?t linear! You may have a setback or bump in the road, but that doesn?t mean you?ve lost all progress. 9. Slow down and recognize when your emotions are trying to 'drive your bus' don't let them consume you too often. 10. Continue to practice assertive communication and set boundaries as needed. - Appointments Appointments/Referrals to Other Services:: 1. Follow up with Dr. Singh in March 2. Kamilah Cm for individual therapy. Last seen on 02/25/22. 3. IOP aftercare starting 03/10/22 from 2:00-3:30pm. - Medications Home Medications: Home Medications pantoprazole 40 mg tablet,delayed release 40 mg PO DAILY 01/19/22 spironolactone 100 mg tablet 100 mg PO DAILY 01/19/22 trazodone 100 mg tablet 50 - 100 mg PO QHS PRN PRN Insomnia 01/19/22 venlafaxine 75 mg capsule,extended release 24 hr (Effexor XR) 225 mg PO DAILY 01/19/22 buspirone 30 mg tablet 30 mg PO DAILY 02/02/22
--- NOTE | 2022-03-03 10:01 | BH.DS_ITS ---
Discharge Summary - Demographics Date of Admission:: 01/17/22 Discharge Date: 03/03/22 Presenting Problems at Admission:: Pt is a 31 year-old female with a history of MDD, ADHD, OCD, and alcohol use disorder in remission. Pt has no previous psych admissions and was referred to [facility] by her outpatient psychiatrist due to decompensation impacting functioning. At admission, pt endorsed hopelessness, worthlessness, isolative behaviors, anhedonia, loss of appetite, low energy, and lack of motivation. Pt also had survival ambivalence, but denied any SI. Pt reported crying spells throughout the day and not knowing who she is due to recent ADHD diagnosis. Pt's functioning was severely impacted by symptoms, pt is off work because of mental health and struggling to complete ADLs. Pt's symptoms were also impacting her social and familial functioning. Discharge Diagnoses:: Major depressive disorder, recurrent, moderate F 33.1; Obsessive-compulsive disorder; Generalized anxiety disorder; ADHD; Alcohol use disorder in remission since July 2021 Reason for Discharge:: Pt has met her treatment goals AEB her reduction of DSM-5 scores for anxiety, OCD, depression, and anger. Pt also reports improved emotional regulation and functioning. Pt no longer meets criteria for [facility] level of tx and will continue with outpatient counseling and [facility] aftercare. - Treatment Progress During Treatment & Response: Pt has made significant strides since starting IOP as shown by her improved mood, reduced symptoms by 50% overall, and increased ability to manage negative thinking. Pt's depression decreased by 75% since admission and anger decreased by 67%. When Pt started IOP she was experiencing significant anxiety and depression that was keeping pt from living life. Now, Pt can catch and manage thoughts that reinforced anxiety and self- doubt, use healthy coping skills more easily, and she feels more confident in her abilities. 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 Pt was highly active in both group and individual therapy sessions. Pt contributed to group discussions, offered emotional support to peers, and consistently followed through with her goals. In individual sessions, Pt was receptive to feedback, consistent with homework, and willing to push herself despite anxiety. Pt?s high motivation, willingness to be uncomfortable, and joyful personality were likely the reason for her significant progress. Pt plans to attend [facility] aftercare as well as follow up with her outpatient providers. Issues Still to be Addressed:: Negative core beliefs, communication and conflict resolution with mother, setting/maintaining boundaries and realistic expectations, navigating a career change and going back to school in the future, and self-confidence. Discharge Recommendations/Instructions:: Pt will follow up with her outpatient providers at [place] [address] Singh in March for medication management. Pt also sees Kamilah Cm for individual counseling and has an appointment on 03/11/22. Pt will start IOP aftercare group on 03/10/22 which lasts eight weeks. Discharge Handout: Complete Discharge Handout with client on aftercare options and continuity of care.
--- NOTE | 2022-03-03 10:15 | BH.SGPN.GN ---
Behaviors/Verbalizations/Mental Status: []Eye contact is good. Motor activity is appropriate. Appearance is casual. Speech is Appropriate. Mood is euthymic. Affect is full. Thoughts are linear and logical. No evidence of psychosis. Client Response/Progress/Benefit: []Pt was an active participant in group discussion. Attentive during psychoeducation on problem-solving strategies. Participated in group experiential activity. Pt provided feedback during interactive group discussion in which pt and peers worked through an example of a problem (Managing Anxiety) in which they identified a goal (minimizing anxiety) and identified barriers. Group was able to complete the activity and pt was able to practice in the moment problem-solving and make connections between problem-solving for activity and in real-life situations. Increased awareness of her response to stressors and reflection on personal growth in managing anxiety. Will discharge from IOP tx today as pt has accomplished her treatment goals and no longer meets criteria for IOP level of care. Narrative Note: []
--- NOTE | 2022-03-03 11:12 | BH.SGPN.GN ---
Behaviors/Verbalizations/Mental Status: []Pt alert and oriented, casual dress, hygiene tended to. Eye contact good. Motor activity WNL. Speech appropriate rate and tone. Affect congruent, mood anxious and euthymic.? Thoughts linear, logical, no signs of hallucinations or delusions. Client Response/Progress/Benefit: []Pt engaged in session as evidenced by pt listening to others and providing input throughout. Pt completed problem solving example with group and identified a goal they want to work on. Goal identified as: taking a few moments to process before reacting to stressors. Pt?s barriers included: over thinking, self-doubt, and anxiety. Pt also identified steps she could take such as spending more time intentionally engaging in relaxing activities, reduce unnecessary stressors when recognizing them, and apply mindfulness skills to reduce anxiety in the moment. Pt seemed to benefit from learning about problem solving method and rehearsing problem-solving skills in the moment. Pt will continue IOP tx to promote gains, further increase anxiety management, and further reduce negative thinking. Narrative Note: []
== END 2022-03-03 12:01 | disposition home or self-care (01) ==
LOC: BHIOP 07:44
PROVIDERS: Referring Provider Psychiatry & Neurology Psychiatry; Visit Provider Psychiatry & Neurology Psychiatry
DX: F33.1 Major depressive disorder, recurrent, moderate (principal); F42.9 Obsessive-compulsive disorder, unspecified; F41.1 Generalized anxiety disorder; F90.9 Attention-deficit hyperactivity disorder, unspecified type
CPT/HCPCS: S9480; 90832; 90834; 90837; 90853

== ENCOUNTER 2022-03-17 13:00 | Outpatient (RCR) | payer SELFPAY ==
--- NOTE | 2022-03-17 14:00 | BH.COMM ---
Communication Note - Communication with Client Communication Note: Presented completed IOP and presents today to starting relapse prevention group which meets once weekly (1.5 hours) for 10 weeks. Case discussed with Dr. Wilson with plan to admit with dx of F33.1
--- NOTE | 2022-03-17 14:00 | BH.SGPN.GN ---
Behaviors/Verbalizations/Mental Status: []Client alert and oriented, casually dressed and groomed. Eye contact good. Motor activity appropriate. Speech within normal limits. Affect congruent, mood anxious and euthymic. Thoughts linear, logical, no signs of hallucinations or delusions. Client Response/Progress/Benefit: []Pt receptive of session, engaged throughout. Pt completed her aftercare self-reflection worksheet sharing they saw their therapist this week and psychiatrist appointment is scheduled for next month, they are taking medications as prescribed, and have been using opposite action, thought challenging, and reading as healthy coping skills. Receptive of discussion on healthy habits and habit formation, as well its importance in maintaining mental health stability. Pt worked cooperatively with group to identify benefits of developing and maintaining healthy habits. Engaged in brainstorming strategies for identifying and changing unhealthy habit patterns. Reported she wants to work on challenging her unhealthy habit of laying in bed in the morning with intentionally getting out of bed to motivate her to begin accomplishing tasks for the day. Pt seemed to benefit from support from peers and increasing understanding of healthy habit formation benefits and strategies. Will continue IOP aftercare group and tx to maintain gains and prevent decompensation. Narrative Note: []
--- NOTE | 2022-03-17 14:25 | BH.MTP ---
Master Treatment Plan - Patient Information Program Physician:: Dr.Sharon Higgins Primary Therapist:: Lili Long - Psychiatric Diagnoses Psychiatric Diagnoses:: Major depressive disorder, recurrent, moderate F 33.1; Obsessive-compulsive disorder; Generalized anxiety disorder; ADHD; Alcohol use disorder in remission since July 2021 Diagnosis Code(s):: F33.1 - Estimated LOS Estimated LOS (in weeks):: 8 Problem/Goal #1 - Problem/Goal #1 Stated Goal:: client will maintain or see a reduction in symptoms AEB client score on the DSM 5 cross-cutting measure and improve client's daily functioning. - Objectives Objective #1 Stated Objective: Client will continue to consistently apply healthy coping skills to maintain progress made in IOP tx. Interventions: Through group therapy, client will review warning signs and triggers as well as healthy coping skills learned in IOP tx to successfully maintain gains while transitioning into outpatient therapy. Discharge Criteria: Client will have accomplished this goal when client's score on the DSM-5 cross-cutting measure has either maintained or reduced over a 12 week period. Target Date: 05/12/22 Review Date: 04/14/22 Objective #2 Stated Objective: Client will learn and utilize 2-3 maintenance strategies to prevent decompensation. Interventions: Through group therapy, client will be provided with education on healthy maintenance behaviors, relapse prevention techniques, and healthy coping strategies. Discharge Criteria: Client will have accomplished this goal when can report using at least 2 maintenance skills to prevent decompensation. Target Date: 05/12/22 Review Date: 04/14/22
--- NOTE | 2022-03-24 14:00 | BH.SGPN.GN ---
Behaviors/Verbalizations/Mental Status: []Pt alert and oriented, casually dressed and groomed. Eye good. Motor activity appropriate. Speech within normal limits. Affect congruent. Mood euthymic, anxious. Thoughts linear, logical, no signs of hallucinations or delusions. Client Response/Progress/Benefit: []Pt responded well to session, attentive and engaged. Pt reports she did see her therapist this week but does not meet with her psychiatrist until next month. Pt has been taking her medications consistently. Reports she has been using coping skills such as positive affirmations, acceptance, and sitting with the uncomfortable to help maintain gains and cope with ongoing stressors. Pt responded well to the discussion of gratitude and the benefits to mental health and relationships. Pt identified different things to focus on each day for the next 7 days to practice gratitude towards self and others. Pt shared she will practice reflecting on the beauty in nature, showing appreciation for something she uses everyday, and give herself credit for something she?s created to practice gratitude over the next week. Pt recommended ongoing IOP aftercare to promote gains made in IOP and reinforce healthy coping skills. Narrative Note: []
--- NOTE | 2022-03-31 14:00 | BH.SGPN.GN ---
Behaviors/Verbalizations/Mental Status: []Pt alert and oriented, neatly dressed and groomed. Eye contact good. Motor activity appropriate. Speech within normal limits. Affect congruent, mood euthymic and anxious. Thoughts linear, logical, no signs of hallucinations or delusions. Client Response/Progress/Benefit: []Pt responded well to session AEB sharing and listening attentively to others. Pt reported she did not have appointments this week with her therapist or psychiatrist. Pt has been taking her medications consistently and she feels that her ADHD medication works ?50% of the time.? Pt reports self-compassion and radical acceptance have been helping her cope lately. Pt participated in group discussion defining affirmations and why they are important. Pt provided insight throughout clinician?s presentation of tips for writing personal affirmations. Pt wrote own affirmations, including ?I am unique, no one else is me and that?s my superpower.? Pt appeared to benefit from increased knowledge of affirmation writing and increased self-awareness. Will continue aftercare treatment to reinforce healthy coping skills and promote gains. ? Narrative Note: []
== END 2022-04-04 23:59 ==
LOC: BHOG 13:00
PROVIDERS: Visit Provider Psychiatry & Neurology Psychiatry
DX: F33.1 Major depressive disorder, recurrent, moderate (principal)
CPT/HCPCS: 90853

== ENCOUNTER 2022-04-05 08:05 | Outpatient (RCR) | payer OTHER, SELFPAY ==
--- NOTE | 2022-04-07 14:00 | BH.SGPN.GN ---
Behaviors/Verbalizations/Mental Status: []Client alert and oriented, casually dressed and groomed. Eye contact good. Motor activity appropriate. Speech within normal limits. Affect congruent, mood anxious and euthymic. Thoughts linear, logical, no signs of hallucinations or delusions. Client Response/Progress/Benefit: []Pt receptive of session, engaged throughout. Pt completed her aftercare self-reflection worksheet sharing they saw their therapist this week and psychiatrist, they are taking medications as prescribed, and have been using reframing and opposite action. Receptive of discussion on personal accountability and its importance in maintaining mental health stability. Pt worked cooperatively with group to identify benefits of maintaining personal accountability. Engaged in brainstorming strategies for improving ability to hold themselves accountable. Reported she wants to work on creating a chore chart she will put at the bottom of her stairs as a visual reminder to complete her daily responsibilities. Pt seemed to benefit from support from peers and increasing understanding of personal accountability benefits and strategies. Will continue IOP aftercare group to maintain gains and prevent decompensation. Narrative Note: []
--- NOTE | 2022-04-14 14:53 | BH.DS ---
Discharge Summary - Demographics Date of Admission:: 03/17/22 Discharge Date: 04/14/22 Presenting Problems at Admission:: Client discharged from IOP tx and transitioned to IOP aftercare to maintain gains client made in IOP and to reinforce healthy coping skills. At admission to IOP aftercare, client reported experiencing mild symptoms of anxiety and depression. Client was reporting ongoing issues with prioritizing self-care, managing intrusive thoughts/OCD sx, and consistently managing daily stressors. Ongoing difficulties in maintaining consistent with emotion regulation skills, reducing reassurance seeking and avoidance behaviors, as well as challenging distorted thought patterns. 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 Pt had reported last week that they met the maximum benefit of IOP tx and will continue with outpatient counseling and psychiatry. - Treatment Progress During Treatment & Response: Pt did well with attendance and engagement. Pt contributed well during individual sessions and group discussions, often providing insight and supportive feedback. Pt was able to challenge negative thinking more easily than before and pt reported increased consistency with their ability to manage anxiety and OCD related sx which is progress. Issues Still to be Addressed:: Intrusive thoughts and reassurance seeking behaviors, negative core beliefs and self-talk, avoidance, ruminations, difficulty setting boundaries and communicating needs, and constantly feeling overwhelmed. Discharge Recommendations/Instructions:: Pt will follow up with her outpatient providers at [place] [address] Singh for medication management. Pt also sees Kamilah Cm for individual counseling. Discharge Handout: Complete Discharge Handout with client on aftercare options and continuity of care.
== END 2022-05-02 12:49 | disposition home or self-care (01) ==
LOC: BHOG 08:05
PROVIDERS: Visit Provider Psychiatry & Neurology Psychiatry
DX: F33.1 Major depressive disorder, recurrent, moderate (principal); F42.9 Obsessive-compulsive disorder, unspecified; F41.1 Generalized anxiety disorder; F90.9 Attention-deficit hyperactivity disorder, unspecified type; F10.91 Alcohol use, unspecified, in remission
CPT/HCPCS: 90853